=== PATIENT | male | born 1960 | race American Indian/Alaskan Native ===

== ENCOUNTER 2017-08-16 13:06 | Emergency (ER) | payer MEDICARE ==
[2017-08-16 13:17] LABS: POC GLUCOSE 281 mg/dL (70-99)
[2017-08-16 13:35] LABS: ADD MAN DIFF? NO
[2017-08-16 13:39] LABS: BASO % 1 % (0-3); EOS # 0.2 x10^3/uL (0.0-0.7); EOS % 2 % (0-3); HEMATOCRIT 37.5 % (39.0-53.0); HEMOGLOBIN 12.8 g/dL (13.0-17.5); LYMPH # 2.6 x10^3/uL (1.0-4.8); LYMPH % 29 % (24-48); MEAN CORPUSCULAR HEMOGLOBIN 29 pg (25-35); MEAN CORPUSCULAR HGB CONC 34 g/dL (31-37); MEAN CORPUSCULAR VOLUME 85 fL (79-100); MONO # 0.8 x10^3/uL (0.0-1.1); MONO % 9 % (0-9); NEUT # 5.4 x10^3uL (1.8-7.7); NEUT % 60 % (31-73); PLATELET COUNT 140 x10^3/uL (140-400); RED BLOOD COUNT 4.41 x10^6/uL (4.30-5.70)
[2017-08-16] MEDS: IV NORMAL SALINE 1000ML BAG 1,000 ML IV (13:42)
[2017-08-16 13:50] LABS: BILIRUBIN,URINE NEGATIVE (NEG); CLARITY,URINE CLOUDY; COLOR,URINE YELLOW; GLUCOSE,URINE >=1000 mg/dL (NEG); NITRITE,URINE NEGATIVE (NEG); PH,URINE 5.5; PROTEIN,URINE 100 mg/dL (NEG-TRACE); UROBILINOGEN,URINE 0.2 mg/dL (0.2 mg/dL)
[2017-08-16 13:51] LABS: ETHANOL < 10 mg/dL (0-10)
[2017-08-16 13:52] LABS: ANION GAP 10 (6-14); BLOOD UREA NITROGEN 26 mg/dL (8-26); BUN/CREATININE RATIO 22 (6-20); CALCIUM 8.8 mg/dL (8.5-10.1); CARBON DIOXIDE 27 mmol/L (21-32); CHLORIDE 100 mmol/L (98-107); CREATININE 1.2 mg/dL (0.7-1.3); GFR 63.1; GLUCOSE 275 mg/dL (70-99); POTASSIUM 4.3 mmol/L (3.5-5.1); SODIUM 137 mmol/L (136-145)
[2017-08-16 13:56] LABS: ALBUMIN 3.4 g/dL (3.4-5.0); ALBUMIN/GLOBULIN RATIO 0.9 (1.0-1.7); ALK PHOS 105 U/L (46-116); ALT (SGPT) 187 U/L (16-63); AMYLASE 50 U/L (25-115); AST (SGOT) 87 U/L (15-37); BARBITURATES NEG (NEG); BENZODIAZEPINES NEG (NEG); CANNABINOIDS POS (NEG); COCAINE NEG (NEG); LIPASE 110 U/L (73-393); METHADONE NEG (NEG); OPIATES NEG (NEG); PHENCYCLIDINE NEG (NEG); TOTAL BILIRUBIN 1.2 mg/dL (0.2-1.0); TOTAL PROTEIN 7.4 g/dL (6.4-8.2)
[2017-08-16 13:57] LABS: AMPHETAMINE/METHAMPHETAMINE POS (NEG); ETHANOL, URINE NEG (NEG)
[2017-08-16 13:59] LABS: TROPONINI < 0.017 ng/mL (0.000-0.055)
[2017-08-16 14:13] LABS: BACTERIA,URINE 0 /HPF (0-FEW)
[2017-08-16 14:14] LABS: HYALINE CASTS, URINE MODERATE /HPF
[2017-08-16 14:33] LABS: POC GLUCOSE 222 mg/dL (70-99)
[2017-08-16] MEDS ORDERED: INSULIN REGULAR 100 UNIT/ML 3ML VIAL. SQ (15:00)
== END 2017-08-16 15:14 | disposition home or self-care (01) ==
LOC: ER 13:06
DX: E11.65 Type 2 diabetes mellitus with hyperglycemia (principal); F19.10 Other psychoactive substance abuse, uncomplicated; F31.9 Bipolar disorder, unspecified; I10 Essential (primary) hypertension; F10.10 Alcohol abuse, uncomplicated
CPT/HCPCS: 36415; 80053; 80307; 81001; 82150; 82962; 83690; 84484; 85025; 93005; 96360; 99285-25; G0480; J7030

== ENCOUNTER 2018-03-23 07:11 | Emergency (ER) | payer MEDICARE ==
[~2018-03-23] VITALS: Ht 182.9 cm; Wt 88.5 kg
[~2018-03-23 07:11] MED LIST: CYCL10TA2 PO; LISI10TA2 PO; METF500T16 PO; NAPR250T6 PO; PERM60CR12 TP
[2018-03-23 07:17] VITALS: BP 167/108
[2018-03-23] MEDS ORDERED: IV NORMAL SALINE 1000ML BAG 1,000 ML IV ONE (07:45)
[2018-03-23] MEDS ORDERED: KETOROLAC 30 MG/ML VIAL. IV ONE (07:45)
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
--- NOTE | 2018-03-23 08:01 | RAD ---
Examination: 2 views of the right hip with frontal view of the pelvis HISTORY: History of right hip pain COMPARISON: 01/01/2016 FINDINGS: Right total hip arthroplasty changes in normal alignment. Old fractures of the right superior inferior pubic ramus identified. Moderate degenerative changes left hip joint. IMPRESSION: 1. Right total hip arthroplasty changes, unchanged alignment. Electronically signed by: Reji Sanchez MD (03/23/2018 7:58 AM) [facility]
[2018-03-23 08:03] LABS: BASO % 0 % (0-3); EOS # 0.1 x10^3/uL (0.0-0.7); EOS % 2 % (0-3); HEMATOCRIT 36.5 % (39.0-53.0); HEMOGLOBIN 12.1 g/dL (13.0-17.5); LYMPH # 1.1 x10^3/uL (1.0-4.8); LYMPH % 23 % (24-48); MEAN CORPUSCULAR HEMOGLOBIN 29 pg (25-35); MEAN CORPUSCULAR HGB CONC 33 g/dL (31-37); MEAN CORPUSCULAR VOLUME 87 fL (79-100); MONO # 0.3 x10^3/uL (0.0-1.1); MONO % 7 % (0-9); NEUT # 3.4 x10^3uL (1.8-7.7); NEUT % 69 % (31-73); PLATELET COUNT 96 x10^3/uL (140-400); RED BLOOD COUNT 4.19 x10^6/uL (4.30-5.70); RED CELL DISTRIBUTION WIDTH 15.6 % (11.5-14.5); WHITE BLOOD COUNT 4.9 x10^3/uL (4.0-11.0)
[2018-03-23 08:12] LABS: PROTHROMBIN TIME PATIENT 15.7 SEC (11.7-14.0)
[2018-03-23 08:14] LABS: CALCIUM 8.7 mg/dL (8.5-10.1); GFR 77.6; POTASSIUM 3.5 mmol/L (3.5-5.1)
[2018-03-23 08:18] LABS: ALBUMIN 3.6 g/dL (3.4-5.0); MAGNESIUM 1.8 mg/dL (1.8-2.4); TOTAL BILIRUBIN 1.2 mg/dL (0.2-1.0); TOTAL PROTEIN 7.3 g/dL (6.4-8.2)
[2018-03-23 08:19] LABS: ACETAMIN < 2.0 mcg/ml (10-30); SALIC < 2.8 mg/dL (2.8-20.0)
[2018-03-23 08:26] LABS: BILIRUBIN,URINE SMALL (NEG); CLARITY,URINE CLEAR; COLOR,URINE AMBER; NITRITE,URINE NEGATIVE (NEG); PH,URINE 5.5; PROTEIN,URINE 100 mg/dL (NEG-TRACE)
[2018-03-23 08:34] LABS: AMPHETAMINE/METHAMPHETAMINE POS (NEG); BACTERIA,URINE FEW /HPF (0-FEW); BARBITURATES NEG (NEG); BENZODIAZEPINES POS (NEG); CANNABINOIDS NEG (NEG); COCAINE NEG (NEG); METHADONE NEG (NEG); OPIATES NEG (NEG); PHENCYCLIDINE NEG (NEG); RBC,URINE OCC /HPF (0-2)
[2018-03-23 08:35] LABS: SQUAMOUS EPITHELIAL CELL,UR OCC /LPF
[2018-03-23] MEDS ORDERED: diazePAM 5 MG TABLET PO ONE (09:00)
[2018-03-23] MEDS ORDERED: PRENATAL MULTIVITAMIN TABLET. PO ONE (09:15)
[2018-03-23] MEDS ORDERED: oxyCODONE/APAP 5/325 1 TAB TABLET PO ONE (09:30)
[2018-03-23] MEDS ORDERED: fentaNYL PF VIAL 100 MCG/2 ML VIAL IV ONE (10:15)
--- NOTE | 2018-03-23 10:46 | RAD ---
Examination: Ultrasound testis HISTORY: History of testicular pain COMPARISON: None available. Findings: The right testis measures 4.1 x 3.7 x 2.7 cm. The left testis measures 4.1 x 3.4 x 2.5 cm. Blood flow identified in the right and left testis. Small bilateral hydroceles identified. Tortuous appearing vascularity identified in the left scrotal region likely a varicocele. IMPRESSION: 1. Small bilateral hydroceles. 2. Left-sided varicocele. Electronically signed by: Reji Sanchez MD (03/23/2018 10:43 AM) [facility]
[2018-03-23] MEDS ORDERED: ORPH100T PO (11:13)
--- NOTE | 2018-03-25 14:32 | EKG ---
[facility] [address] [place] [address] Test Date: 2018-03-23 Test Time: 07:55:41 Pat Name: KEITH NGUYEN Department: Room: Gender: Religion Instructor: : 1960 Requested By: SOY PEPPER Order Number: [id number] Reading MD: Rivas Kuhn Measurements Intervals [place] Rate: P: PA: QRS: QRSD: T: QT: QTc: Interpretive Statements Compared to ECG 08/16/2017 13:53:15 No significant changes Electronically Signed On 03-27-2018 8:48:03 [employer] by Rivas Kuhn
== END 2018-03-23 11:30 | disposition home or self-care (01) ==
LOC: ER 07:11
DX: G89.29 Other chronic pain (principal); M25.551 Pain in right hip; I86.1 Scrotal varices; N43.3 Hydrocele, unspecified; F43.10 Post-traumatic stress disorder, unspecified; F17.200 Nicotine dependence, unspecified, uncomplicated; F31.9 Bipolar disorder, unspecified; I10 Essential (primary) hypertension; E11.9 Type 2 diabetes mellitus without complications; F10.20 Alcohol dependence, uncomplicated; Y90.9 Presence of alcohol in blood, level not specified; Z96.641 Presence of right artificial hip joint; Z59.0 Homelessness
CPT/HCPCS: 36415; 73502; 76870; 80053; 80307; 80329; 81001; 82962; 83735; 85025; 85610; 85730; 93005; 96374; 96375; 99284; G0480; G6039; J1885; J3010; J7030

== ENCOUNTER 2018-06-23 22:20 | Emergency (ER) | payer MEDICARE ==
[~2018-06-23] VITALS: Ht 182.9 cm; Wt 88.5 kg
[~2018-06-23 22:20] MED LIST changes: +ORPH100T PO
[2018-06-23 23:00] VITALS: BP 179/105
[2018-06-23] MEDS ORDERED: KETOROLAC 30 MG/ML VIAL. IM ONE (23:30)
[2018-06-24] MEDS ORDERED: NAPR-695 PO (00:38)
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
--- NOTE | 2018-06-24 05:19 | RAD ---
Right knee 3 views. HISTORY: Pain and swelling 3 views were taken of the right knee. There are 2 screws in the tibia from an old surgery. There is osteoarthritis at the knee with hypertrophic spurring. There are holes in the femur on the lateral view suggesting previous screws have been removed. There is a joint effusion. IMPRESSION: 1. Changes suggesting old injury. 2. Moderate osteoarthritis right knee. 3. Joint effusion. Electronically signed by: Prosper Fitch MD (06/24/2018 5:16 AM) [facility]
== END 2018-06-24 00:57 | disposition home or self-care (01) ==
LOC: ER 22:20
DX: S80.01XA Contusion of right knee, initial encounter (principal); M17.11 Unilateral primary osteoarthritis, right knee; F31.9 Bipolar disorder, unspecified; E11.9 Type 2 diabetes mellitus without complications; I10 Essential (primary) hypertension; Z98.1 Arthrodesis status; Z98.890 Other specified postprocedural states; F10.20 Alcohol dependence, uncomplicated; Y90.9 Presence of alcohol in blood, level not specified; W22.8XXA Striking against or struck by other objects, initial encounter; Y93.89 Activity, other specified; Y92.89 Other specified places as the place of occurrence of the external cause; Y99.8 Other external cause status
CPT/HCPCS: 73562; 96372; 99284; J1885

== ENCOUNTER 2019-11-28 21:28 | Inpatient (IN) | payer MEDICARE, MEDICAID ==
[~2019-11-28] VITALS: Ht 182.9 cm; Wt 77.8 kg
[~2019-11-28 21:28] MED LIST changes: +AMLO-187 PO; +BUPR150T6 PO; +CEFAZOLIN IV; +GABA300C18 PO; +INSU100V35 SQ; +INSU100V8 SQ; +LIDO700A21 TD; +MERO1VIA24 IV; +NAPR-695 PO; +TAMS0.4C97 PO
[2019-11-28 22:25] LABS: BILIRUBIN,URINE NEGATIVE (NEG); CLARITY,URINE CLEAR; COLOR,URINE YELLOW; NITRITE,URINE NEGATIVE (NEG); PROTEIN,URINE NEGATIVE (NEG-TRACE); UROBILINOGEN,URINE 0.2 mg/dL (0.2 mg/dL)
[2019-11-28 22:30] LABS: BACTERIA,URINE 0 /HPF (0-FEW); RBC,URINE RARE /HPF (0-2)
[2019-11-28] MEDS ORDERED: IV NORMAL SALINE 1000ML BAG 1,000 ML IV SCH (22:30)
[2019-11-28 22:37] LABS: BASO % 1 % (0-3); EOS # 0.2 x10^3/uL (0.0-0.7); EOS % 2 % (0-3); HEMATOCRIT 25.5 % (39.0-53.0); HEMOGLOBIN 8.4 g/dL (13.0-17.5); LYMPH # 0.5 x10^3/uL (1.0-4.8); LYMPH % 5 % (24-48); MEAN CORPUSCULAR HEMOGLOBIN 27 pg (25-35); MEAN CORPUSCULAR HGB CONC 33 g/dL (31-37); MEAN CORPUSCULAR VOLUME 82 fL (79-100); MONO # 0.6 x10^3/uL (0.0-1.1); MONO % 6 % (0-9); NEUT % 87 % (31-73); PLATELET COUNT 118 x10^3/uL (140-400); RED BLOOD COUNT 3.13 x10^6/uL (4.30-5.70); RED CELL DISTRIBUTION WIDTH 17.8 % (11.5-14.5); WHITE BLOOD COUNT 10.3 x10^3/uL (4.0-11.0)
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
[2019-11-28 22:44] LABS: CALCIUM 8.5 mg/dL (8.5-10.1); CREATININE 2.2 mg/dL (0.7-1.3); POTASSIUM 4.5 mmol/L (3.5-5.1)
[2019-11-28 22:49] LABS: MAGNESIUM 2.1 mg/dL (1.8-2.4); PHOSPHORUS 3.5 mg/dL (2.6-4.7)
[2019-11-28 22:50] LABS: ALBUMIN 2.3 g/dL (3.4-5.0); ALBUMIN/GLOBULIN RATIO 0.4 (1.0-1.7); TOTAL BILIRUBIN 0.3 mg/dL (0.2-1.0); TOTAL PROTEIN 7.9 g/dL (6.4-8.2)
[2019-11-28 22:58] LABS: % BANDS 16 % (0-9); % EOS 3 % (0-5); % LYMPHS 2 % (24-48); % MONOS 8 % (0-10); % MYELOS 1 % (0-0); % SEGS 70 % (35-66); PLATELET CLUMP PRESENT
[2019-11-28 23:03] LABS: ANISOCYTOSIS SLIGHT; PLT ESTIMATE DECREASED (ADEQUATE)
--- NOTE | 2019-11-28 23:08 | RAD ---
AP chest. HISTORY: Fever AP view was taken of the chest. Right central line is in good position. There are old left rib fractures with previous surgery. There are no acute infiltrates. Heart is normal in size. There is no effusion. IMPRESSION: 1. No acute chest disease. Electronically signed by: Prosper Fitch MD (11/28/2019 11:06 PM) [id number]
[2019-11-29] MEDS ORDERED: ACETAMINOPHEN 500 MG TABLET PO ONE (00:30)
[2019-11-29] MEDS ORDERED: IV NORMAL SALINE 1000ML BAG 1,000 ML IV ONE (01:00)
[2019-11-29] MEDS ORDERED: ONDANSETRON PF 4 MG/2 ML VIAL. IV PRN (01:00)
[2019-11-29] MEDS ORDERED: fentaNYL PF VIAL 100 MCG/2 ML VIAL IV PRN (01:00)
[2019-11-29] MEDS ORDERED: ACETAMINOPHEN 325 MG TABLET. PO PRN (01:00)
[2019-11-29 08:00] VITALS: BP 142/95
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
[2019-11-29 11:00] VITALS: BP 141/88
[2019-11-29] MEDS: CLOTRIMAZOLE 1% TOPICAL CREAM 15GM TUBE. TP SCH ×2 (11:26→21:00)
[2019-11-29 15:00] VITALS: BP 141/88
--- NOTE | 2019-11-29 16:37 | NUR ---
Patient arrived to the unit around 0800 via gurney and assist x 1 to transfer to bed. Pt was oriented to room staff and unit as well as policies. pt states understanding. pts sister Radha called and was given updates as permission given by the patient. Patients pass code given to family per pts request. Pts daughters arrived on the unit at approx 1300 this shift and thought they were able to see the pt. Patient gave nurse permission to given daughters Sierra and Rut all info and passcode. Updates given and explained to the family as well as visiting policies. pt was swabbed by this nurse and swab taken to lab at approx 1400 as ER stated that the pt refused to allow them to swab him. Pt resting quietly at this time. Will continue to monitor.
[2019-11-29 20:00] VITALS: BP 128/71
[2019-11-29] MEDS: CEFEPIME HCL IV Push 1 GM VIAL. IVP SCH (21:54)
[2019-11-29 23:25] VITALS: BP 147/88
[2019-11-30 04:20] VITALS: BP 138/62
[2019-11-30 06:43] LABS: BASO % 0 % (0-3); EOS % 1 % (0-3); HEMATOCRIT 23.6 % (39.0-53.0); HEMOGLOBIN 7.8 g/dL (13.0-17.5); LYMPH # 0.6 x10^3/uL (1.0-4.8); LYMPH % 10 % (24-48); MEAN CORPUSCULAR HEMOGLOBIN 27 pg (25-35); MEAN CORPUSCULAR HGB CONC 33 g/dL (31-37); MEAN CORPUSCULAR VOLUME 82 fL (79-100); MONO # 0.5 x10^3/uL (0.0-1.1); MONO % 7 % (0-9); NEUT # 5.6 x10^3/uL (1.8-7.7); NEUT % 83 % (31-73); RED BLOOD COUNT 2.88 x10^6/uL (4.30-5.70); RED CELL DISTRIBUTION WIDTH 17.8 % (11.5-14.5); WHITE BLOOD COUNT 6.8 x10^3/uL (4.0-11.0)
[2019-11-30 06:55] LABS: CALCIUM 8.4 mg/dL (8.5-10.1); CREATININE 2.1 mg/dL (0.7-1.3); GFR 32.7; POTASSIUM 4.4 mmol/L (3.5-5.1)
[2019-11-30 07:14] VITALS: BP 136/73
[2019-11-30] MEDS: CLOTRIMAZOLE 1% TOPICAL CREAM 15GM TUBE. TP SCH ×2 (09:00→21:00)
[2019-11-30 11:06] VITALS: BP 146/81
[2019-11-30] MEDS: CIPROFLOXACIN 400MG PREMIX 200 ML IV SCH ×2 (12:04→21:23)
[2019-11-30] MEDS: CEFEPIME HCL IV Push 1 GM VIAL. IVP SCH ×2 (12:12→21:24)
[2019-11-30] MEDS: LACTOBACILLUS RHAMNOSUS GG 1 CAPSULE. PO SCH ×2 (12:14→21:25)
[2019-11-30 13:01] LABS: PLATELET COUNT 57 x10^3/uL (140-400)
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
[2019-11-30 15:10] VITALS: BP 146/87
[2019-11-30] MEDS: ACETAMINOPHEN 325 MG TABLET. PO PRN (15:56)
[2019-11-30] MEDS ORDERED: DEXTROSE 50% 25 GM / 50ML DISP.SYRIN. IV PRN (17:45)
[2019-11-30] MEDS: INSULIN LISPRO 300 UNITS/3 ML VIAL. SQ SCH ×2 (18:41→18:42)
[2019-11-30 19:53] VITALS: BP 113/72
[2019-11-30] MEDS: APIXABAN 5 MG TABLET. PO SCH (21:25)
[2019-11-30] MEDS: GABAPENTIN 300 MG CAPSULE. PO SCH (21:25)
[2019-11-30] MEDS: INSULIN GLARGINE SYRINGE. SQ SCH (21:26)
[2019-11-30 23:32] VITALS: BP 120/74
[2019-12-01 00:33] LABS: BARBITURATES NEG (NEG); BENZODIAZEPINES NEG (NEG); CANNABINOIDS NEG (NEG); COCAINE NEG (NEG); METHADONE NEG (NEG); OPIATES NEG (NEG); PHENCYCLIDINE NEG (NEG)
[2019-12-01 00:35] LABS: AMPHETAMINE/METHAMPHETAMINE NEG (NEG)
[2019-12-01 07:05] VITALS: BP 126/84
--- NOTE | 2019-12-01 07:34 | PDOC ---
Infectious Disease Note Subjective: Subjective Patient remains febrile Denies any other complaints except for difficulty passing urine Has to strain while passing urine Vital Signs: Vital Signs Vital Signs Date Time Temp Pulse Resp B/P (MAP) Pulse Ox O2 Delivery O2 Flow Rate FiO2 12/01/19 03:44 20 Nasal Cannula 2.0 11/30/19 23:32 97.8 87 120/74 (89) 98 97.8 Physical Exam: PHYSICAL EXAM GENERAL: axox3 male in nad nontoxic-appearing HEENT anicteric, no conjunctival petechia LUNGS: Clear to auscultation. Chest wall right chest powered picc present, clean HEART: S1, S2, no murmur. ABDOMEN: Soft. No guarding. Positive bowel sounds, no [place] EXTREMITIES: No clubbing or cyanosis. Edema to right forearm. SKIN: Warm without generalized rash. He has multiple tattoos. NEUROLOGIC: Nonfocal, moves all extremities. MSK no joint effusion or tenderness noted Back no spine tenderness Medications: Inpatient Meds: Current Medications Medications (Trade) Dose Ordered Sig/Nany Start Time Stop Time Status Last Admin Dose Admin Acetaminophen (Tylenol) 650 mg PRN Q6HRS PRN 11/30/19 13:45 11/30/19 15:56 650 MG Apixaban (Eliquis) 5 mg BID 11/30/19 21:00 11/30/19 21:25 5 MG Bupropion HCl (Wellbutrin Xl) 300 mg DAILY 12/01/19 09:00 Cefepime HCl (Maxipime) 1 gm Q12HR 11/29/19 18:00 11/30/19 21:24 1 GM Ciprofloxacin/ Dextrose 200 ml @ 200 mls/hr Q12HR 11/30/19 09:00 11/30/19 21:23 200 MLS/HR Clotrimazole (Lotrimin) 1 diana BID 11/29/19 09:00 11/30/19 21:00 1 DIANA Dextrose (Dextrose 50%-Water Syringe) 12.5 gm PRN Q15MIN PRN 11/30/19 17:45 Fentanyl Citrate (Fentanyl 2ml Vial) 50 mcg PRN Q1HR PRN 11/29/19 01:00 11/30/19 00:59 DC Gabapentin (Neurontin) 300 mg TID 11/30/19 21:00 10/25/20 21:25 300 MG Insulin Glargine (Lantus Syringe) 28 unit QHS 11/30/19 21:00 11/30/19 21:26 28 UNIT Insulin Human Lispro (HumaLOG) 4 units TIDWMEALS 11/30/19 18:15 11/30/19 18:42 4 UNITS Lactobacillus Rhamnosus (Culturelle) 1 cap BID 11/30/19 12:00 11/30/19 21:25 1 CAP Lorazepam (Ativan Inj) 0.5 mg 1X ONCE 11/28/19 23:00 11/28/19 23:01 DC 11/28/19 22:32 0.5 MG Metronidazole 100 ml @ 100 mls/hr Q12HR 11/29/19 19:00 11/30/19 21:24 100 MLS/HR Ondansetron HCl (Zofran) 4 mg PRN Q8HRS PRN 11/29/19 01:00 11/30/19 00:59 DC 11/30/19 00:02 4 MG Sodium Chloride 1,000 ml @ 75 mls/hr 1X ONCE 11/29/19 01:00 11/29/19 14:19 DC 11/29/19 00:28 75 MLS/HR Labs: Lab Laboratory Tests Test 11/30/19 07:53 11/30/19 11:42 11/30/19 17:34 11/30/19 20:48 Glucose (Fingerstick) 276 mg/dL (70-99) 273 mg/dL (70-99) 557 mg/dL (70-99) 359 mg/dL (70-99) Test 11/30/19 23:00 Urine Opiates Screen Neg (NEG) Urine Methadone Screen Neg (NEG) Urine Barbiturates Neg (NEG) Urine Phencyclidine Screen Neg (NEG) Urine Amphetamine/Methamphetamine Neg (NEG) Urine Benzodiazepines Screen Neg (NEG) Urine Cocaine Screen Neg (NEG) Urine Cannabinoids Screen Neg (NEG) Urine Ethyl Alcohol Neg (NEG) Objective: Assessment: Serratia bacteremia present on admission source unclear what could be possible drug use Fever Thrombocytopenia History of Enterobacter, methicillin sensitive staph aureus sepsis November 03, source possible drug use GERI with CKD Amphetamine/methamphetamine use Diabetes mellitus poorly controlled Bilateral hydronephrosis Cirrhosis History of homelessness Chronic pain syndrome Protein calorie malnutrition Plan: Plan of Care Start meropenem, may need renal dosing Continue Cipro pending susceptibilities of Serratia DC cefepime, Flagyl, CT abdomen and pelvis without Patient may need urology evaluation Repeat blood cultures in a.m. Patient may need central line removal DUNIA RODRÍGUEZ MD Dec 01, 2019 07:34
[2019-12-01] MEDS ORDERED: INSULIN LISPRO 300 UNITS/3 ML VIAL. SQ SCH ×2 (08:00)
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
--- NOTE | 2019-12-01 09:28 | CONS ---
DATE OF CONSULTATION: 11/30/2019 REQUESTING PHYSICIAN: . REASON FOR CONSULTATION: . HISTORY OF PRESENT ILLNESS: This is a 59-year-old gentleman who was recently discharged from the hospital on 11/21/2019. The patient was in the hospital for a long time with having Enterobacter and Staph aureus bacteremia. The patient had finished the Enterobacter treatment while in the hospital ended up in the hospital for 2 weeks and then he was getting cefazolin at nursing facility where he started having fever and chills, hence he was sent back. The patient is currently chilling. The patient has Gram-negative stephani in the blood and he is having body aches and fever. The patient denies any nausea, vomiting, diarrhea. Denies any use of drugs as he had used drugs last admission before coming in. Denies any headache, visual symptoms, chest pain, abdominal pain, urinary symptoms or bowel symptoms. PAST MEDICAL HISTORY: Positive for diabetes, drug use, hypertension, hep C, bipolar disorder and recent Enterobacter and Staph aureus bacteremia. SOCIAL HISTORY: Negative for smoking or alcohol use. The patient does do drugs. CURRENT MEDICATIONS: The patient was on cefazolin before coming in. REVIEW OF SYSTEMS: As per HPI, all other systems reviewed are negative. CURRENT MEDICATIONS: Right now, he is on cefepime and Flagyl. PHYSICAL EXAMINATION: GENERAL: Awake gentleman. He is having chills. VITAL SIGNS: T-max is 100.6, pulse 114, respirations 20, blood pressure 167/97. HEENT: Both pupils are round and reacting. No conjunctival lesion, no lesion in the mouth. NECK: Supple, no JVP, no lymphadenopathy. LUNGS: Clear. HEART: S1, S2 regular. ABDOMEN: Soft, nontender, no organomegaly. EXTREMITIES: No edema, cyanosis. SKIN: Unremarkable. Port site in the right upper chest is unremarkable. NEUROLOGIC: The patient is alert, awake and appropriate. No focal neurologic deficit. LABORATORY DATA: White count is 10.3, platelets 118,000. BUN and creatinine is 31 and 2.2. Lactic acid 1.7. Urinalysis was unremarkable. His blood culture is showing 1/4 Gram-negative stephani. IMPRESSION: 1. Gram-negative stephani sepsis. 2. Fever and chills. 3. Recent methicillin-susceptible Staphylococcus aureus and Enterobacter bacteremia. 4. History of drug use. RECOMMENDATIONS: Continue cefepime. We will discontinue Flagyl, add ciprofloxacin until the identification and susceptibilities are known. Supportive care and we will continue to follow. Also, I am going to go ahead and do the CT chest, abdomen, pelvis and the drug screen. Thank you very much, Dr. Willis, for giving me the opportunity to participate in this patient's care. EUN RODRÍGUEZ MD DR: ERIK/nts JOB#: [id number] / [id number]
[2019-12-01] MEDS: MEROPENEM 500 MG in IV NORMAL SALINE 50ML 50 ML IV SCH ×3 (09:51→23:23)
[2019-12-01] MEDS: CIPROFLOXACIN 400MG PREMIX 200 ML IV SCH ×2 (09:51→22:41)
[2019-12-01] MEDS: APIXABAN 5 MG TABLET. PO SCH ×2 (09:52→22:41)
[2019-12-01] MEDS: LACTOBACILLUS RHAMNOSUS GG 1 CAPSULE. PO SCH ×2 (09:52→22:40)
[2019-12-01] MEDS: GABAPENTIN 300 MG CAPSULE. PO SCH ×3 (09:52→22:40)
[2019-12-01] MEDS: buPROPion XL 150 MG TAB.ER.24H. PO SCH (09:52)
[2019-12-01] MEDS: INSULIN LISPRO 300 UNITS/3 ML VIAL. SQ SCH ×6 (10:04→18:07)
[2019-12-01] MEDS: CLOTRIMAZOLE 1% TOPICAL CREAM 15GM TUBE. TP SCH ×2 (10:05→21:00)
[2019-12-01] MEDS ORDERED: ANTI-COAG MONITOR BY PHARMACY. MC PRN (10:45)
[2019-12-01 11:05] VITALS: BP 179/106
--- NOTE | 2019-12-01 11:38 | RAD ---
EXAM: CT Abdomen and Pelvis without IV contrast INDICATION: Reason: bacteremia ,obstruction / Spl. Instructions: / History: TECHNIQUE: Multi-detector row CT images were acquired from the lung bases through the abdomen and pelvis without the use of IV contrast. Sagittal and coronal images were acquired from the transaxial data. All CT scans performed at this facility utilize dose optimization techniques as appropriate to the exam, including the following: Automated exposure control and adjustment of the mA and/or KV according to patient size (this includes techniques or standardized protocols for targeted exams where dose is indication/reason for exam). ORAL CONTRAST: None COMPARISON: 11/05/2019 FINDINGS: The absence of IV contrast limits evaluation of soft tissue pathology. LOWER CHEST: Resolution in left pleural effusion. Small residual right pleural effusion and associated mild bibasilar atelectasis. Plate fixation of posterior left rib fractures (the seventh and ninth ribs). LIVER: Nodular contour consistent with cirrhosis. BILIARY SYSTEM: Contracted gallbladder with a calcified stone in the neck. Bile ducts are not dilated. PANCREAS: Unremarkable SPLEEN: Enlarged, measuring 15 x 12 x 18 cm ADRENALS: Unremarkable KIDNEYS & URETERS: Grade 2 bilateral hydronephrosis is present along with bilateral hydroureter. No radiopaque stones identified. BLADDER: Distended urinary bladder with multiple diverticula. The bladder measures 15.4 cm tall by 10.2 cm anteroposterior and 10.6 cm wide. REPRODUCTIVE ORGANS: Prostate measures 4.6 cm in diameter. GASTROINTESTINAL: The stomach, small bowel, and colon are notable for moderate stool throughout the large bowel but otherwise are unremarkable.. The appendix is normal. MESENTERY/PERITONEUM/RETROPERITONEUM: Unremarkable VASCULAR: IVC filter remains in place. LYMPH NODES: No adenopathy OSSEOUS & SOFT TISSUES: Old fracture of the right inferior pubic ramus with residual deformity. Right total hip arthroplasty. IMPRESSION: 1. There are CT findings suspicious for urinary tract obstruction. Can't exclude concurrent cystitis. Correlate clinically. 2. Cirrhosis with splenomegaly 3. Posttraumatic surgical changes left ribs as described, in addition to previous right hip arthroplasty and IVC filter placement. Electronically signed by: Pantera Arrieta MD (12/01/2019 11:36 AM) [id number]
[2019-12-01] MEDS: ACETAMINOPHEN 325 MG TABLET. PO PRN (12:31)
[2019-12-01 15:05] VITALS: BP 121/69
[2019-12-01 19:00] VITALS: BP 134/85
[2019-12-01] MEDS: INSULIN GLARGINE SYRINGE. SQ SCH (22:40)
[2019-12-01 23:00] VITALS: BP 134/87
[2019-12-02] VITALS (7 sets, daily range): BP systolic 124–158; BP diastolic 86–99
[2019-12-02] MEDS: MEROPENEM 500 MG in IV NORMAL SALINE 50ML 50 ML IV SCH ×3 (05:47→18:35)
--- NOTE | 2019-12-02 06:52 | PDOC ---
Infectious Disease Note Subjective: Subjective Patient feels better Fever pattern improving Able to pass urine though continues to strain Denies fever, chills, nausea, vomiting, diarrhea, abdominal pain Vital Signs: Vital Signs Vital Signs Date Time Temp Pulse Resp B/P (MAP) Pulse Ox O2 Delivery O2 Flow Rate FiO2 12/02/19 03:00 98.7 98 18 157/90 (112) 98 Room Air 2.0 98.7 Physical Exam: PHYSICAL EXAM GENERAL: axox3 male in nad nontoxic-appearing HEENT anicteric, no conjunctival petechia LUNGS: Clear to auscultation. Chest wall right chest powered picc present, clean HEART: S1, S2, no murmur. ABDOMEN: Soft. No guarding. Positive bowel sounds, no [place] EXTREMITIES: No clubbing or cyanosis. Edema to right forearm. SKIN: Warm without generalized rash. He has multiple tattoos. NEUROLOGIC: Nonfocal, moves all extremities. MSK no joint effusion or tenderness noted Back no spine tenderness Medications: Inpatient Meds: Current Medications Medications (Trade) Dose Ordered Sig/Nany Start Time Stop Time Status Last Admin Dose Admin Acetaminophen (Tylenol) 650 mg PRN Q6HRS PRN 11/30/19 13:45 12/01/19 12:31 650 MG Apixaban (Eliquis) 5 mg BID 11/30/19 21:00 12/01/19 22:41 5 MG Bupropion HCl (Wellbutrin Xl) 300 mg DAILY 12/01/19 09:00 12/01/19 09:52 300 MG Cefepime HCl (Maxipime) 1 gm Q12HR 11/29/19 18:00 12/01/19 07:28 DC 11/30/19 21:24 1 GM Ciprofloxacin/ Dextrose 200 ml @ 200 mls/hr Q12HR 12/01/19 09:00 12/01/19 22:41 200 MLS/HR Clotrimazole (Lotrimin) 1 diana BID 11/29/19 09:00 12/01/19 10:05 1 DIANA Dextrose (Dextrose 50%-Water Syringe) 12.5 gm PRN Q15MIN PRN 11/30/19 17:45 Fentanyl Citrate (Fentanyl 2ml Vial) 50 mcg PRN Q1HR PRN 11/29/19 01:00 11/30/19 00:59 DC Gabapentin (Neurontin) 300 mg TID 11/30/19 21:00 12/01/19 22:40 300 MG Info (Anti-Coagulation Monitoring By Pharmacy) 1 each PRN DAILY PRN 12/01/19 10:45 Insulin Glargine (Lantus Syringe) 28 unit QHS 11/30/19 21:00 12/01/19 22:40 28 UNIT Insulin Human Lispro (HumaLOG) 4 units TIDWMEALS 11/30/19 18:15 12/01/19 18:06 4 UNITS Lactobacillus Rhamnosus (Culturelle) 1 cap BID 11/30/19 12:00 12/01/19 22:40 1 CAP Lorazepam (Ativan Inj) 0.5 mg 1X ONCE 11/28/19 23:00 11/28/19 23:01 DC 11/28/19 22:32 0.5 MG Meropenem 500 mg/ Sodium Chloride 50 ml @ 100 mls/hr Q6HRS 12/01/19 08:30 12/02/19 05:47 100 MLS/HR Metronidazole 100 ml @ 100 mls/hr Q12HR 11/29/19 19:00 12/01/19 07:27 DC 11/30/19 21:24 100 MLS/HR Ondansetron HCl (Zofran) 4 mg PRN Q8HRS PRN 11/29/19 01:00 11/30/19 00:59 DC 11/30/19 00:02 4 MG Sodium Chloride 1,000 ml @ 75 mls/hr 1X ONCE 11/29/19 01:00 11/29/19 14:19 DC 11/29/19 00:28 75 MLS/HR Labs: Lab Laboratory Tests Test 12/01/19 08:04 12/01/19 11:54 12/01/19 16:03 12/01/19 20:25 Glucose (Fingerstick) 225 mg/dL (70-99) 228 mg/dL (70-99) 177 mg/dL (70-99) 380 mg/dL (70-99) Micro RUN DATE: 12/01/19 [facility] *LIVE* PAGE 1 RUN TIME: 1008 Specimen Inquiry PATIENT: KEITH NGUYEN Chadwick ACCT: [id number] LOC: [address] [place] [address] U: [id number] AGE/SX: 59/M ROOM: [facility] RE11/29/[address]: WINTER TRISTAN MD : 1960 BED: 1 DIS: STATUS: ADM IN TLOC: SPEC #: [id number] ANALY: 11/28/19 STATUS: COMP REQ #: [id number] RECD: 11/28/[address]: GHAZALA ALLEN MD SOURCE: BLOOD ENTR: 11/29/19-[address]: UNKNOWN PCP NAME SPDESC: ORDERED: BLD CULT - LC Procedure Result BLOOD CULTURE LC Final Final FINAL ID= [SERRATIA MARCESCENS] SERRATIA MARCESCENS ANTIMICROBIAL SUSCEPTIBILITY Final Comment NEG FRANC 58 SERRATIA MARCESCENS ANTIBIOTIC RESULT INTERPRETATION AMPICILLIN/SULBACTAM 16/8 R* AMIKACIN <=16 S AMPICILLIN >16 R AMOXICILLIN/K CLAVULANATE >16/8 R AZTREONAM >16 R CEFTRIAXONE 8 R CEFTAZIDIME >16 R CEFOTAXIME >32 R CEFOXITIN 16 R* CIPROFLOXACIN <=0.25 S CEFEPIME 4 S CEFUROXIME >16 R CEFTAZIDIME/AVIBACTAM 8 S ERTAPENEM <=0.5 S GENTAMICIN <=2 S LEVOFLOXACIN <=0.5 S MEROPENEM <=1 S PIPERACILLIN/TAZOBACTAM >64 R TRIMETHOPRIM/SULFAMETHOXAZOLE <=0.5/9.5 S TETRACYCLINE 8 I TOBRAMYCIN <=2 S Unless otherwise specified, Testing Performed by: [address] [address] For Inquires, the Physician may contact the Microbiology department at [phone] Objective: Assessment: Serratia bacteremia present on admission source unclear what could be possible drug use Fever improved Thrombocytopenia likely from sepsis History of Enterobacter, methicillin sensitive staph aureus sepsis November 03, source possible drug use GERI with CKD Amphetamine/methamphetamine use Diabetes mellitus poorly controlled Bilateral hydronephrosis Cirrhosis History of homelessness Chronic pain syndrome Protein calorie malnutrition Plan: Plan of Care cont meropenem, may need renal dosing DC Cipro CT abdomen and pelvis without Patient may need urology evaluation Repeat blood cultures in a.m. Patient may need central line removal DUNIA RODRÍGUEZ MD Dec 02, 2019 06:52
[2019-12-02] MEDS: APIXABAN 5 MG TABLET. PO SCH ×2 (09:11→21:03)
[2019-12-02] MEDS: LACTOBACILLUS RHAMNOSUS GG 1 CAPSULE. PO SCH ×2 (09:11→21:03)
[2019-12-02] MEDS: buPROPion XL 150 MG TAB.ER.24H. PO SCH (09:11)
[2019-12-02] MEDS: CLOTRIMAZOLE 1% TOPICAL CREAM 15GM TUBE. TP SCH ×2 (09:11→21:07)
[2019-12-02] MEDS: GABAPENTIN 300 MG CAPSULE. PO SCH ×3 (09:11→21:03)
[2019-12-02] MEDS: INSULIN LISPRO 300 UNITS/3 ML VIAL. SQ SCH ×6 (09:21→17:33)
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
[2019-12-02] MEDS: ACETAMINOPHEN 325 MG TABLET. PO PRN (19:35)
[2019-12-02] MEDS: INSULIN GLARGINE SYRINGE. SQ SCH (21:14)
[2019-12-03] VITALS (7 sets, daily range): BP systolic 131–171; BP diastolic 78–113
[2019-12-03] MEDS: MEROPENEM 500 MG in IV NORMAL SALINE 50ML 50 ML IV SCH ×4 (00:02→17:59)
[2019-12-03 03:29] LABS: BASO % 1 % (0-3); EOS # 0.1 x10^3/uL (0.0-0.7); EOS % 2 % (0-3); HEMATOCRIT 24.9 % (39.0-53.0); HEMOGLOBIN 8.3 g/dL (13.0-17.5); LYMPH % 22 % (24-48); MEAN CORPUSCULAR HEMOGLOBIN 27 pg (25-35); MEAN CORPUSCULAR HGB CONC 33 g/dL (31-37); MEAN CORPUSCULAR VOLUME 81 fL (79-100); MONO # 0.5 x10^3/uL (0.0-1.1); MONO % 10 % (0-9); NEUT # 2.9 x10^3/uL (1.8-7.7); NEUT % 65 % (31-73); RED BLOOD COUNT 3.07 x10^6/uL (4.30-5.70); RED CELL DISTRIBUTION WIDTH 17.7 % (11.5-14.5); WHITE BLOOD COUNT 4.5 x10^3/uL (4.0-11.0)
[2019-12-03 03:35] LABS: PLATELET COUNT 128 x10^3/uL (140-400)
[2019-12-03 03:46] LABS: ALBUMIN 2.2 g/dL (3.4-5.0); ALBUMIN/GLOBULIN RATIO 0.5 (1.0-1.7); CALCIUM 8.1 mg/dL (8.5-10.1); CREATININE 1.9 mg/dL (0.7-1.3); GFR 36.7; POTASSIUM 4.6 mmol/L (3.5-5.1); TOTAL BILIRUBIN 0.2 mg/dL (0.2-1.0)
--- NOTE | 2019-12-03 04:27 | NUR ---
Call placed to re: pt elevated bp 165/113
[2019-12-03] MEDS: buPROPion XL 150 MG TAB.ER.24H. PO SCH (08:46)
[2019-12-03] MEDS: GABAPENTIN 300 MG CAPSULE. PO SCH ×3 (08:46→20:51)
[2019-12-03] MEDS: APIXABAN 5 MG TABLET. PO SCH ×2 (08:46→20:51)
[2019-12-03] MEDS: LACTOBACILLUS RHAMNOSUS GG 1 CAPSULE. PO SCH ×2 (08:46→20:51)
[2019-12-03] MEDS: amLODIPine BESYLATE 10 MG TABLET PO SCH (08:47)
[2019-12-03] MEDS: LISINOPRIL 10 MG TABLET PO SCH (08:48)
[2019-12-03] MEDS: INSULIN LISPRO 300 UNITS/3 ML VIAL. SQ SCH ×6 (08:49→18:03)
[2019-12-03] MEDS: CLOTRIMAZOLE 1% TOPICAL CREAM 15GM TUBE. TP SCH ×2 (08:52→20:56)
--- NOTE | 2019-12-03 09:56 | PDOC ---
Infectious Disease Note Subjective: Subjective Patient feels better Fever resolved Denies fever, chills, nausea, vomiting, diarrhea, abdominal pain Vital Signs: Vital Signs Vital Signs Date Time Temp Pulse Resp B/P (MAP) Pulse Ox O2 Delivery O2 Flow Rate FiO2 12/03/19 08:48 97 161/99 12/03/19 07:00 98.0 21 98 Room Air 98.0 12/02/19 08:15 2.0 Physical Exam: PHYSICAL EXAM GENERAL: axox3 male in nad nontoxic-appearing HEENT anicteric, no conjunctival petechia LUNGS: Clear to auscultation. Chest wall right chest powered picc present, clean HEART: S1, S2, no murmur. ABDOMEN: Soft. No guarding. Positive bowel sounds, no [place] EXTREMITIES: No clubbing or cyanosis. Edema to right forearm. SKIN: Warm without generalized rash. He has multiple tattoos. NEUROLOGIC: Nonfocal, moves all extremities. MSK no joint effusion or tenderness noted Back no spine tenderness Medications: Inpatient Meds: Current Medications Medications (Trade) Dose Ordered Sig/Nany Start Time Stop Time Status Last Admin Dose Admin Acetaminophen (Tylenol) 650 mg PRN Q6HRS PRN 11/30/19 13:45 12/02/19 19:35 650 MG Amlodipine Besylate (Norvasc) 10 mg DAILY 12/03/19 09:00 12/03/19 08:47 10 MG Apixaban (Eliquis) 5 mg BID 11/30/19 21:00 12/03/19 08:46 5 MG Bupropion HCl (Wellbutrin Xl) 300 mg DAILY 12/01/19 09:00 12/03/19 08:46 300 MG Cefepime HCl (Maxipime) 1 gm Q12HR 11/29/19 18:00 12/01/19 07:28 DC 11/30/19 21:24 1 GM Ciprofloxacin/ Dextrose 200 ml @ 200 mls/hr Q12HR 12/01/19 09:00 12/02/19 06:53 DC 12/01/19 22:41 200 MLS/HR Clotrimazole (Lotrimin) 1 diana BID 11/29/19 09:00 12/03/19 08:52 1 DIANA Dextrose (Dextrose 50%-Water Syringe) 12.5 gm PRN Q15MIN PRN 11/30/19 17:45 Fentanyl Citrate (Fentanyl 2ml Vial) 50 mcg PRN Q1HR PRN 11/29/19 01:00 11/30/19 00:59 DC Gabapentin (Neurontin) 300 mg TID 11/30/19 21:00 12/03/19 08:46 300 MG Info (Anti-Coagulation Monitoring By Pharmacy) 1 each PRN DAILY PRN 12/01/19 10:45 12/02/19 15:04 1 EACH Insulin Glargine (Lantus Syringe) 28 unit QHS 11/30/19 21:00 12/02/19 21:14 28 UNIT Insulin Human Lispro (HumaLOG) 4 units TIDWMEALS 11/30/19 18:15 12/03/19 08:49 4 UNITS Lactobacillus Rhamnosus (Culturelle) 1 cap BID 11/30/19 12:00 12/03/19 08:46 1 CAP Lisinopril (Prinivil) 10 mg DAILY 12/03/19 09:00 12/03/19 08:48 10 MG Lorazepam (Ativan Inj) 0.5 mg 1X ONCE 11/28/19 23:00 11/28/19 23:01 DC 11/28/19 22:32 0.5 MG Meropenem 500 mg/ Sodium Chloride 50 ml @ 100 mls/hr Q6HRS 12/01/19 08:30 12/03/19 05:30 100 MLS/HR Metronidazole 100 ml @ 100 mls/hr Q12HR 11/29/19 19:00 12/01/19 07:27 DC 11/30/19 21:24 100 MLS/HR Ondansetron HCl (Zofran) 4 mg PRN Q8HRS PRN 11/29/19 01:00 11/30/19 00:59 DC 11/30/19 00:02 4 MG Sodium Chloride 1,000 ml @ 75 mls/hr 1X ONCE 11/29/19 01:00 11/29/19 14:19 DC 11/29/19 00:28 75 MLS/HR Labs: Lab Laboratory Tests Test 12/02/19 10:59 12/02/19 16:13 12/02/19 21:05 12/03/19 03:13 Glucose (Fingerstick) 286 mg/dL (70-99) 166 mg/dL (70-99) 212 mg/dL (70-99) White Blood Count 4.5 x10^3/uL (4.0-11.0) Red Blood Count 3.07 x10^6/uL (4.30-5.70) Hemoglobin 8.3 g/dL (13.0-17.5) Hematocrit 24.9 % (39.0-53.0) Mean Corpuscular Volume 81 fL (79-100) Mean Corpuscular Hemoglobin 27 pg (25-35) Mean Corpuscular Hemoglobin Concent 33 g/dL (31-37) Red Cell Distribution Width 17.7 % (11.5-14.5) Platelet Count 128 x10^3/uL (140-400) Neutrophils (%) (Auto) 65 % (31-73) Lymphocytes (%) (Auto) 22 % (24-48) Monocytes (%) (Auto) 10 % (0-9) Eosinophils (%) (Auto) 2 % (0-3) Basophils (%) (Auto) 1 % (0-3) Neutrophils # (Auto) 2.9 x10^3/uL (1.8-7.7) Lymphocytes # (Auto) 1.0 x10^3/uL (1.0-4.8) Monocytes # (Auto) 0.5 x10^3/uL (0.0-1.1) Eosinophils # (Auto) 0.1 x10^3/uL (0.0-0.7) Basophils # (Auto) 0.0 x10^3/uL (0.0-0.2) Sodium Level 139 mmol/L (136-145) Potassium Level 4.6 mmol/L (3.5-5.1) Chloride Level 106 mmol/L (98-107) Carbon Dioxide Level 23 mmol/L (21-32) Anion Gap 10 (6-14) Blood Urea Nitrogen 40 mg/dL (8-26) Creatinine 1.9 mg/dL (0.7-1.3) Estimated GFR (Cockcroft-Gault) 36.7 BUN/Creatinine Ratio 21 (6-20) Glucose Level 232 mg/dL (70-99) Calcium Level 8.1 mg/dL (8.5-10.1) Total Bilirubin 0.2 mg/dL (0.2-1.0) Aspartate Amino Transf (AST/SGOT) 32 U/L (15-37) Alanine Aminotransferase (ALT/SGPT) 29 U/L (16-63) Alkaline Phosphatase 161 U/L (46-116) Total Protein 7.0 g/dL (6.4-8.2) Albumin 2.2 g/dL (3.4-5.0) Albumin/Globulin Ratio 0.5 (1.0-1.7) Test 12/03/19 07:20 Glucose (Fingerstick) 206 mg/dL (70-99) Micro ----- ------- RUN DATE: 12/01/19 [facility] LAB *LIVE* PAGE 1 RUN TIME: 1008 Specimen Inquiry PATIENT: WENDYKEITH ACCT: [id number] LOC: [address] [place] [address] U: [id number] AGE/SX: 59/M ROOM: 672 RE11/29/[address]: WINTER TRISTAN MD : 1960 BED: 1 DIS: STATUS: ADM IN TLOC: SPEC #: [id number] ANALY: 11/28/19 STATUS: COMP REQ #: [id number] RECD: 11/28/[address] [facility] [address]: GHAZALA ALLEN MD SOURCE: BLOOD ENTR: 11/29/19-1249 [facility] DR: UNKNOWN PCP NAME [facility]: ORDERED: BLD CULT - LC Procedure Result BLOOD CULTURE LC Final Final FINAL ID= [SERRATIA MARCESCENS] SERRATIA MARCESCENS ANTIMICROBIAL SUSCEPTIBILITY Final Comment NEG FRANC 56 SERRATIA MARCESCENS ANTIBIOTIC RESULT INTERPRETATION AMPICILLIN/SULBACTAM 16/8 R* AMIKACIN <=16 S AMPICILLIN >16 R AMOXICILLIN/K CLAVULANATE >16/8 R AZTREONAM >16 R CEFTRIAXONE 8 R CEFTAZIDIME >16 R CEFOTAXIME >32 R CEFOXITIN 16 R* CIPROFLOXACIN <=0.25 S CEFEPIME 4 S CEFUROXIME >16 R CEFTAZIDIME/AVIBACTAM 8 S ERTAPENEM <=0.5 S GENTAMICIN <=2 S LEVOFLOXACIN <=0.5 S MEROPENEM <=1 S PIPERACILLIN/TAZOBACTAM >64 R TRIMETHOPRIM/SULFAMETHOXAZOLE <=0.5/9.5 S TETRACYCLINE 8 I TOBRAMYCIN <=2 S Unless otherwise specified, Testing Performed by: [address] [address] For Inquires, the Physician may contact the Microbiology department at [phone] Objective: Assessment: Serratia bacteremia present on admission source unclear what could be possible drug use Fever improved Thrombocytopenia likely from sepsis History of Enterobacter, methicillin sensitive staph aureus sepsis November 03, source possible drug use Repeat blood cultures negative from November 07, 2019 GERI with CKD Amphetamine/methamphetamine use Diabetes mellitus poorly controlled Bilateral hydronephrosis Cirrhosis History of homelessness Chronic pain syndrome Protein calorie malnutrition Plan: Plan of Care Continue meropenem Linezolid f/u repeat bc Hopefully will be ready for discharge tomorrow DUNIA RODRÍGUEZ MD Dec 03, 2019 09:56
--- NOTE | 2019-12-03 10:27 | NUR ---
IP: Pt is mrsa + in urine requiring contact precautions.
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
[2019-12-03] MEDS: LINEZOLID 600 MG TABLET PO SCH ×2 (12:26→20:51)
[2019-12-03] MEDS: INSULIN GLARGINE SYRINGE. SQ SCH (20:54)
[2019-12-04] MEDS: MEROPENEM 500 MG in IV NORMAL SALINE 50ML 50 ML IV SCH ×2 (00:09→05:20)
[2019-12-04 03:04] VITALS: BP 137/88
[2019-12-04 05:40] LABS: CALCIUM 8.1 mg/dL (8.5-10.1); CREATININE 1.9 mg/dL (0.7-1.3); GFR 36.7; POTASSIUM 4.7 mmol/L (3.5-5.1)
[2019-12-04 06:42] LABS: BASO # 0.1 x10^3/uL (0.0-0.2); BASO % 1 % (0-3); EOS # 0.1 x10^3/uL (0.0-0.7); EOS % 2 % (0-3); LYMPH # 1.1 x10^3/uL (1.0-4.8); LYMPH % 19 % (24-48); MEAN CORPUSCULAR HEMOGLOBIN 27 pg (25-35); MEAN CORPUSCULAR HGB CONC 33 g/dL (31-37); MEAN CORPUSCULAR VOLUME 81 fL (79-100); MONO # 0.4 x10^3/uL (0.0-1.1); MONO % 6 % (0-9); NEUT # 4.4 x10^3/uL (1.8-7.7); NEUT % 72 % (31-73); PLATELET COUNT 106 x10^3/uL (140-400); RED BLOOD COUNT 2.99 x10^6/uL (4.30-5.70); RED CELL DISTRIBUTION WIDTH 17.5 % (11.5-14.5); WHITE BLOOD COUNT 6.1 x10^3/uL (4.0-11.0)
[2019-12-04 06:51] LABS: HEMATOCRIT 24.4 % (39.0-53.0); HEMOGLOBIN 8.2 g/dL (13.0-17.5)
[2019-12-04 07:00] VITALS: BP 152/91
--- NOTE | 2019-12-04 07:18 | PDOC ---
Infectious Disease Note Subjective: Subjective Patient feels better Fever resolved Denies fever, chills, nausea, vomiting, diarrhea, abdominal pain eager for dc home Vital Signs: Vital Signs Vital Signs Date Time Temp Pulse Resp B/P (MAP) Pulse Ox O2 Delivery O2 Flow Rate FiO2 12/04/19 03:04 98.0 95 19 137/88 (104) 99 Room Air 98.0 12/03/19 20:00 2.0 Physical Exam: PHYSICAL EXAM GENERAL: axox3 male in nad nontoxic-appearing looks better HEENT anicteric, no conjunctival petechia LUNGS: Clear to auscultation. Chest wall right chest powered picc present, clean HEART: S1, S2, no murmur. ABDOMEN: Soft. No guarding. Positive bowel sounds, no [place] EXTREMITIES: No clubbing or cyanosis. Edema to right forearm. SKIN: Warm without generalized rash. He has multiple tattoos. NEUROLOGIC: Nonfocal, moves all extremities. MSK no joint effusion or tenderness noted Back no spine tenderness Medications: Inpatient Meds: Current Medications Medications (Trade) Dose Ordered Sig/Nany Start Time Stop Time Status Last Admin Dose Admin Acetaminophen (Tylenol) 650 mg PRN Q6HRS PRN 11/30/19 13:45 12/02/19 19:35 650 MG Amlodipine Besylate (Norvasc) 10 mg DAILY 12/03/19 09:00 12/03/19 08:47 10 MG Apixaban (Eliquis) 5 mg BID 11/30/19 21:00 12/03/19 20:51 5 MG Bupropion HCl (Wellbutrin Xl) 300 mg DAILY 12/01/19 09:00 12/03/19 08:46 300 MG Cefepime HCl (Maxipime) 1 gm Q12HR 11/29/19 18:00 12/01/19 07:28 DC 11/30/19 21:24 1 GM Ciprofloxacin/ Dextrose 200 ml @ 200 mls/hr Q12HR 12/01/19 09:00 12/02/19 06:53 DC 12/01/19 22:41 200 MLS/HR Clotrimazole (Lotrimin) 1 diana BID 11/29/19 09:00 12/03/19 20:56 1 DIANA Dextrose (Dextrose 50%-Water Syringe) 12.5 gm PRN Q15MIN PRN 11/30/19 17:45 Fentanyl Citrate (Fentanyl 2ml Vial) 50 mcg PRN Q1HR PRN 11/29/19 01:00 11/30/19 00:59 DC Gabapentin (Neurontin) 300 mg TID 11/30/19 21:00 12/03/19 20:51 300 MG Info (Anti-Coagulation Monitoring By Pharmacy) 1 each PRN DAILY PRN 12/01/19 10:45 12/02/19 15:04 1 EACH Insulin Glargine (Lantus Syringe) 28 unit QHS 11/30/19 21:00 12/03/19 20:54 28 UNIT Insulin Human Lispro (HumaLOG) 4 units TIDWMEALS 11/30/19 18:15 12/03/19 18:02 4 UNITS Lactobacillus Rhamnosus (Culturelle) 1 cap BID 11/30/19 12:00 12/03/19 20:51 1 CAP Linezolid (Zyvox) 600 mg BID 12/03/19 11:00 12/03/19 20:51 600 MG Lisinopril (Prinivil) 10 mg DAILY 12/03/19 09:00 12/03/19 08:48 10 MG Lorazepam (Ativan Inj) 0.5 mg 1X ONCE 11/28/19 23:00 11/28/19 23:01 DC 11/28/19 22:32 0.5 MG Meropenem 500 mg/ Sodium Chloride 50 ml @ 100 mls/hr Q6HRS 12/01/19 08:30 12/04/19 05:20 100 MLS/HR Metronidazole 100 ml @ 100 mls/hr Q12HR 11/29/19 19:00 12/01/19 07:27 DC 11/30/19 21:24 100 MLS/HR Ondansetron HCl (Zofran) 4 mg PRN Q8HRS PRN 11/29/19 01:00 11/30/19 00:59 DC 11/30/19 00:02 4 MG Sodium Chloride 1,000 ml @ 75 mls/hr 1X ONCE 11/29/19 01:00 11/29/19 14:19 DC 11/29/19 00:28 75 MLS/HR Labs: Lab Laboratory Tests Test 12/03/19 07:20 12/03/19 11:46 12/03/19 11:47 12/03/19 16:40 Glucose (Fingerstick) 206 mg/dL (70-99) 334 mg/dL (70-99) 315 mg/dL (70-99) 162 mg/dL (70-99) Test 12/03/19 20:25 12/04/19 05:25 12/04/19 06:35 Glucose (Fingerstick) 111 mg/dL (70-99) Sodium Level 135 mmol/L (136-145) Potassium Level 4.7 mmol/L (3.5-5.1) Chloride Level 103 mmol/L (98-107) Carbon Dioxide Level 24 mmol/L (21-32) Anion Gap 8 (6-14) Blood Urea Nitrogen 36 mg/dL (8-26) Creatinine 1.9 mg/dL (0.7-1.3) Estimated GFR (Cockcroft-Gault) 36.7 Glucose Level 337 mg/dL (70-99) Calcium Level 8.1 mg/dL (8.5-10.1) White Blood Count 6.1 x10^3/uL (4.0-11.0) Red Blood Count 2.99 x10^6/uL (4.30-5.70) Hemoglobin 8.2 g/dL (13.0-17.5) Hematocrit 24.4 % (39.0-53.0) Mean Corpuscular Volume 81 fL (79-100) Mean Corpuscular Hemoglobin 27 pg (25-35) Mean Corpuscular Hemoglobin Concent 33 g/dL (31-37) Red Cell Distribution Width 17.5 % (11.5-14.5) Platelet Count 106 x10^3/uL (140-400) Neutrophils (%) (Auto) 72 % (31-73) Lymphocytes (%) (Auto) 19 % (24-48) Monocytes (%) (Auto) 6 % (0-9) Eosinophils (%) (Auto) 2 % (0-3) Basophils (%) (Auto) 1 % (0-3) Neutrophils # (Auto) 4.4 x10^3/uL (1.8-7.7) Lymphocytes # (Auto) 1.1 x10^3/uL (1.0-4.8) Monocytes # (Auto) 0.4 x10^3/uL (0.0-1.1) Eosinophils # (Auto) 0.1 x10^3/uL (0.0-0.7) Basophils # (Auto) 0.1 x10^3/uL (0.0-0.2) Micro RUN DATE: 12/01/19 [facility] LAB *LIVE* PAGE 1 RUN TIME: 1008 Specimen Inquiry PATIENT: KEITH NGUYEN ACCT: [id number] LOC: [address] [place] [address] U: [id number] AGE/SX: 59/M ROOM: [facility] RE11/29/[address]: WINTER TRISTAN MD : 1960 BED: 1 DIS: STATUS: ADM IN TLOC: SPEC #: [id number] ANALY: 11/28/19 STATUS: COMP REQ #: [id number] RECD: 11/28/[address]: GHAZALA ALLEN MD SOURCE: BLOOD ENTR: 11/29/19-[address]: UNKNOWN PCP NAME [facility]: ORDERED: BLD CULT - LC - Procedure Result BLOOD CULTURE LC Final Final FINAL ID= [SERRATIA MARCESCENS] SERRATIA MARCESCENS ANTIMICROBIAL SUSCEPTIBILITY Final Comment NEG FRANC 56 SERRATIA MARCESCENS ANTIBIOTIC RESULT INTERPRETATION AMPICILLIN/SULBACTAM 16/8 R* AMIKACIN <=16 S AMPICILLIN >16 R AMOXICILLIN/K CLAVULANATE >16/8 R AZTREONAM >16 R CEFTRIAXONE 8 R CEFTAZIDIME >16 R CEFOTAXIME >32 R CEFOXITIN 16 R* CIPROFLOXACIN <=0.25 S CEFEPIME 4 S CEFUROXIME >16 R CEFTAZIDIME/AVIBACTAM 8 S ERTAPENEM <=0.5 S GENTAMICIN <=2 S LEVOFLOXACIN <=0.5 S MEROPENEM <=1 S PIPERACILLIN/TAZOBACTAM >64 R TRIMETHOPRIM/SULFAMETHOXAZOLE <=0.5/9.5 S TETRACYCLINE 8 I TOBRAMYCIN <=2 S Unless otherwise specified, Testing Performed by: [address] [address] For Inquires, the Physician may contact the Microbiology department at [phone] Objective: Assessment: Serratia bacteremia present on admission source unclear what could be possible drug use Repeat blood cultures negative Culture 30 K staph aureus MRSA? Significance, blood cultures negative Fever improved Thrombocytopenia likely from sepsis History of Enterobacter, methicillin sensitive staph aureus sepsis November 03, source possible drug use Repeat blood cultures negative from November 07, 2019 GERI with CKD Amphetamine/methamphetamine use Diabetes mellitus poorly controlled Bilateral hydronephrosis Cirrhosis History of homelessness Chronic pain syndrome Protein calorie malnutrition Plan: Plan of Care DC meropenem, 1 dose of ertapenem today before discharge Patient has completed treatment for methicillin sensitive staph aureus and Enterobacter bacteremia from previous admission Linezolid for 7 days Start ciprofloxacin 500 mg p.o. twice daily for 10 days probiotics/yogurt avoid illicit drug use Discontinue central line before discharge Patient can be discharged home from ID standpoint DUNIA RODRÍGUEZ MD Dec 04, 2019 07:18
[2019-12-04] MEDS: INSULIN LISPRO 300 UNITS/3 ML VIAL. SQ SCH ×4 (08:00→12:00)
[2019-12-04] MEDS: GABAPENTIN 300 MG CAPSULE. PO SCH ×2 (08:26→13:56)
[2019-12-04] MEDS: LISINOPRIL 10 MG TABLET PO SCH (08:26)
[2019-12-04] MEDS: APIXABAN 5 MG TABLET. PO SCH (08:26)
[2019-12-04] MEDS: amLODIPine BESYLATE 10 MG TABLET PO SCH (08:26)
[2019-12-04] MEDS: LACTOBACILLUS RHAMNOSUS GG 1 CAPSULE. PO SCH (08:26)
[2019-12-04] MEDS: buPROPion XL 150 MG TAB.ER.24H. PO SCH (08:26)
[2019-12-04] MEDS: LINEZOLID 600 MG TABLET PO SCH (08:26)
[2019-12-04] MEDS ORDERED: INSULIN LISPRO 300 UNITS/3 ML VIAL. SQ ONE (09:00)
[2019-12-04] MEDS ORDERED: ERTAPENEM 1GM IVPB(GENERIC) NS 50 ML IV ONE (09:15)
[2019-12-04] MEDS: CLOTRIMAZOLE 1% TOPICAL CREAM 15GM TUBE. TP SCH (09:19)
[2019-12-04] MEDS ORDERED: APIX5TAB PO (10:18)
--- NOTE | 2019-12-04 10:18 | SNU/HH DC ---
DISCHARGE ORDERS DISCHARGE INFORMATION: CONDITION ON DISCHARGE: Stable CODE STATUS: Code Status: Full FPC: SNF STAY <30 DAYS: Yes HOSPICE: HOSPICE: No HOSPICE EVAL & TREAT: No LTAC: ADMIT TO LTAC: No POST DISCHARGE ORDERS: ACTIVITY ORDERS: Progressive ambulation DIET AFTER DISCHARGE: ADA WOUND/INCISION CARE: No wound care needed CHECKS AFTER DISCHARGE: CHECKS AFTER DISCHARGE: Check blood sugar, ac/hs FOLLOW-UP: LAB ORDERS FOR FOLLOW-UP: CBC, CMP TREATMENT/EQUIPMENT ORDERS: ADAPTIVE EQUIPMENT NEEDED: [facility] Physical Therapy For: Evalulation/Treatment Occupational Therapy For: Evaluation/Treatment DISCHARGE MEDICATIONS: Home Meds Active Scripts [ceFAZolin 2GM PREMIX] No Conflict Check, 2 GM IV Q8HRS for MSSA bacteremia for 30 Days, #90 Start on November 20 after Meropenem is completed on 11/20/19 Prov:RAPHAEL BROTHERS MD 11/14/19 Tamsulosin Hcl (FLOMAX) 0.4 Mg Cap.er.24h, 0.4 MG PO QHS for bph for 30 Days, # 30 CAP.SR Prov:RAPHAEL BROTHERS MD 11/14/19 Lidocaine (Lidocaine PATCH ) 1 Each Adh..patch, 1 PATCH TD PRN DAILY for chronic pain for 30 Days, #30 PATCH Prov:RAPHAEL BROTHERS MD 11/14/19 Insulin Lispro (Admelog) 100 Unit/1 Ml Vial, 4 UNITS SQ TIDWMEALS for dm for 30 Days, #90 EACH Prov:RAPHAEL BROTHERS MD 11/14/19 Insulin Glargine,Hum.rec.anlog (LANTUS) 100 Unit/1 Ml Vial, 28 UNIT SQ QHS for dm for 30 Days, #30 EACH Prov:RAPHAEL BRTOHERS MD 11/14/19 Bupropion Hcl (BUPROPION XL) 150 Mg Tab.er.24h, 300 MG PO DAILY for depression for 30 Days, #60 TAB.SR Prov:RAPHAEL BROTHERS MD 11/14/19 Gabapentin (GABAPENTIN) 300 Mg Capsule, 300 MG PO TID for chronic pain for 30 Days, #90 CAP Prov:RAPHAEL BROTHERS MD 11/14/19 Amlodipine Besylate (AMLODIPINE BESYLATE) 10 Mg Tablet, 10 MG PO DAILY for HTN for 30 Days, #30 TAB Prov:RAPHAEL BROTHERS MD 11/14/19 Meropenem (MEROPENEM) 1 Gm Vial, 1 GM IV Q12HR for enterobacter bactermia for 6 Days, #12 EACH Prov:RAPHAEL BROTHERS MD 11/14/19 Cyclobenzaprine Hcl (CYCLOBENZAPRINE HCL) 10 Mg Tablet, 10 MG PO TID PRN for MUSCLE SPASMS, #12 TAB Prov:TRINA PHILLIPS DO 01/01/16 Reported Medications Lisinopril (LISINOPRIL) 10 Mg Tablet, 10 MG PO DAILY for FOR HYPERTENSION, #30 TAB 0 Refills 08/22/13 Metformin Hcl (METFORMIN HCL) 500 Mg Tablet, 500 MG PO BIDWMEALS for ANTI- DIABETIC, TAB 0 Refills 08/22/13 IBAN HLAL III DO Dec 04, 2019 10:18
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
[2019-12-04 10:53] VITALS: BP 126/80
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
[2019-12-04] MEDS ORDERED: MIDAZOLAM HCL/PF 2 MG/2 ML VIAL. ONE (14:17)
[2019-12-04] MEDS ORDERED: MIDAZOLAM HCL/PF 2 MG/2 ML VIAL. IV ONE (14:30)
[2019-12-04 14:39] VITALS: BP 137/79
--- NOTE | 2019-12-04 14:49 | RAD ---
12/04/2019 12:45 PM Removal of right internal jugular tunneled central venous catheter Indication: No longer requires central venous access Discussion: The risks and benefits of the procedure were discussed the patient. Informed consent was obtained. A timeout procedure was performed. The right chest at the catheter exit site was prepped and draped using maximum sterile barrier technique. All elements of maximal sterile barrier technique including the use of a cap, mask, sterile gown, sterile gloves, large sterile sheet, appropriate hand hygiene, and 2% chlorhexidine for cutaneous antisepsis (or acceptable alternative antiseptic per current guidelines) were followed for this procedure. The catheter was removed with traction. A sterile dressing was applied. No immediate complications were identified. Impression: Removal of right internal jugular tunneled central venous catheter
--- NOTE | 2019-12-04 17:37 | NUR ---
Transportation on unit to take pt back to [facility]. Aide at bedside with patient, patient standing to use restroom and get dressed. Pt fell and landed on coccyx. No injuries noted. Physician on unit at time of fall. No new orders given. Pt okay to discharge to facility per physician.
--- NOTE | 2019-12-04 17:49 | NUR ---
Discharge Note: KEITH NGUYEN Attempted to contact [facility], unable to reach other facility for report. Attempted to contact this facility three seperate times. Pt left via wheelchair with transportation in stable condition.
== END 2019-12-04 18:01 | DRG 871 ==
LOC: ER 21:28 → 6 SOUTH 11-29 03:11 → ED HOLD 11-29 03:18 → OBSVTOIN 11-29 03:18 → 6 SOUTH 11-29 07:59 → 2 NORTH 12-02 18:07
PROVIDERS: ADMIT Family Medicine; ATTEND Family Medicine
PROC: 0JPV3XZ Removal of Tunneled Vascular Access Device from Upper Extremity Subcutaneous Tissue and Fascia, Percutaneous Approach (ICD-10-PCS; principal; 2019-12-04)
DX: A41.50 Gram-negative sepsis, unspecified (principal); E43 Unspecified severe protein-calorie malnutrition; N17.0 Acute kidney failure with tubular necrosis; E87.1 Hypo-osmolality and hyponatremia; I82.619 Acute embolism and thrombosis of superficial veins of unspecified upper extremity; N13.30 Unspecified hydronephrosis; B95.61 Methicillin susceptible Staphylococcus aureus infection as the cause of diseases classified elsewhere; D63.8 Anemia in other chronic diseases classified elsewhere; D69.59 Other secondary thrombocytopenia; E11.22 Type 2 diabetes mellitus with diabetic chronic kidney disease; E11.65 Type 2 diabetes mellitus with hyperglycemia; F12.90 Cannabis use, unspecified, uncomplicated; F15.90 Other stimulant use, unspecified, uncomplicated; F17.200 Nicotine dependence, unspecified, uncomplicated; F31.9 Bipolar disorder, unspecified; F43.10 Post-traumatic stress disorder, unspecified; G89.4 Chronic pain syndrome; I12.9 Hypertensive chronic kidney disease with stage 1 through stage 4 chronic kidney disease, or unspecified chronic kidney disease; Z96.649 Presence of unspecified artificial hip joint; K74.60 Unspecified cirrhosis of liver; K75.9 Inflammatory liver disease, unspecified; N18.9 Chronic kidney disease, unspecified; Z79.4 Long term (current) use of insulin; Z86.19 Personal history of other infectious and parasitic diseases; Z91.19 Patient's noncompliance with other medical treatment and regimen; Z20.828 Contact with and (suspected) exposure to other viral communicable diseases; Z68.23 Body mass index [BMI] 23.0-23.9, adult
CPT/HCPCS: 36415; 36589; 71045; 74176; 80048; 80053; 80307; 81001; 82962; 83605; 83735; 84100; 84484; 85007; 85025; 85379; 85610; 85730; 87040; 87077; 87086; 87186; 87205; J0692; J0744; J1335; J1815; J2060; J2185; J2250; J2405; J3490; J7030; U0003; 97110-GP; 97535-GO; G0378

== ENCOUNTER 2020-02-15 20:12 | Inpatient (IN) | payer MEDICARE, MEDICAID ==
[~2020-02-15] VITALS: Ht 182.9 cm; Wt 73.1 kg
[~2020-02-15 20:12] MED LIST changes: +APIX5TAB PO; +BUPR150T21 PO; -BUPR150T6 PO; +LISI10TA16 PO; -LISI10TA2 PO; +NAPR-699 PO; -NAPR250T6 PO
[2020-02-15] MEDS ORDERED: LABETALOL 20 MG/4 ML DISP.SYRIN. IVP ONE (20:30)
[2020-02-15] MEDS ORDERED: cefTRIAXone IV Push 1 GM VIAL. IVP ONE (20:30)
[2020-02-15] MEDS ORDERED: ONDANSETRON PF 4 MG/2 ML VIAL. IVP ONE (20:30)
[2020-02-15] MEDS ORDERED: IV NORMAL SALINE 1000ML BAG 1,000 ML IV ONE ×2 (20:45→22:00)
[2020-02-15 20:57] LABS: BASO % 0 % (0-3); EOS % 1 % (0-3); HEMATOCRIT 43.8 % (39.0-53.0); HEMOGLOBIN 14.7 g/dL (13.0-17.5); LYMPH % 29 % (24-48); MEAN CORPUSCULAR HEMOGLOBIN 27 pg (25-35); MEAN CORPUSCULAR HGB CONC 34 g/dL (31-37); MEAN CORPUSCULAR VOLUME 80 fL (79-100); MONO # 0.3 x10^3/uL (0.0-1.1); MONO % 5 % (0-9); NEUT # 4.5 x10^3/uL (1.8-7.7); NEUT % 65 % (31-73); RED BLOOD COUNT 5.47 x10^6/uL (4.30-5.70); RED CELL DISTRIBUTION WIDTH 14.9 % (11.5-14.5); WHITE BLOOD COUNT 6.9 x10^3/uL (4.0-11.0)
[2020-02-15 21:07] LABS: BILIRUBIN,URINE NEGATIVE (NEG); CLARITY,URINE CLEAR; COLOR,URINE YELLOW; NITRITE,URINE NEGATIVE (NEG); PH,URINE 5.5 (<5.0-8.0); PROTEIN,URINE 30 mg/dL (NEG-TRACE); UROBILINOGEN,URINE 0.2 mg/dL (0.2 mg/dL)
[2020-02-15 21:12] LABS: PLATELET COUNT 128 x10^3/uL (140-400)
[2020-02-15 21:15] LABS: ALBUMIN 3.9 g/dL (3.4-5.0); ALBUMIN/GLOBULIN RATIO 0.7 (1.0-1.7); C-REACTIVE PROTEIN 1.5 mg/L (0-3.3); CALCIUM 11.9 mg/dL (8.5-10.1); CREATININE 2.8 mg/dL (0.7-1.3); GFR 23.5; POTASSIUM 4.9 mmol/L (3.5-5.1); TOTAL BILIRUBIN 0.7 mg/dL (0.2-1.0); TOTAL PROTEIN 9.2 g/dL (6.4-8.2)
[2020-02-15 21:16] LABS: BACTERIA,URINE 0 /HPF (0-FEW); HYALINE CASTS, URINE FEW /HPF
--- NOTE | 2020-02-15 21:18 | RAD ---
XR CHEST 1V 02/15/2020 8:34 PM INDICATION: Weakness COMPARISON: None available TECHNIQUE: Portable frontal view of the chest is provided. FINDINGS: The cardiomediastinal silhouette is within normal limits. Lungs are clear. There are no significant pleural effusions. There is no pulmonary vascular congestion. No pneumothora x. Malleable plate and screw fixation of prior rib fractures appears similar to prior examination involv ing the left lateral seventh and ninth ribs. IMPRESSION: There is no acute cardiopulmonary process. Electronically signed by: Ramila Rivera MD (02/15/2020 9:10 PM) [facility]
[2020-02-15] MEDS ORDERED: INSULIN REGULAR 100 UNIT/ML 3ML VIAL. IV ONE (22:00)
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
[2020-02-15] MEDS: IV NORMAL SALINE 1000ML BAG 1,000 ML IV SCH (23:00)
[2020-02-15 23:15] VITALS: BP 173/116
[2020-02-15] MEDS ORDERED: DEXTROSE 50% 25 GM / 50ML DISP.SYRIN. IV PRN (23:45)
[2020-02-16] VITALS (7 sets, daily range): BP systolic 141–178; BP diastolic 90–110
[2020-02-16] MEDS ORDERED: fentaNYL PF VIAL 100 MCG/2 ML VIAL IVP PRN
[2020-02-16] MEDS ORDERED: HYDROcodone/APAP 5/325MG 1 TAB TABLET PO PRN
[2020-02-16] MEDS ORDERED: MORPHINE SULFATE 4 MG/ML VIAL. IV PRN
[2020-02-16] MEDS: IV NORMAL SALINE 1000ML BAG 1,000 ML IV SCH ×5 (00:10→19:45)
[2020-02-16] MEDS ORDERED: MAGNESIUM HYDROXIDE 2,400 MG/30 ML ORAL.SUSP. PO PRN (00:15)
[2020-02-16] MEDS ORDERED: PROCHLORPERAZINE 10 MG/2 ML VIAL. IVP PRN (00:15)
[2020-02-16] MEDS ORDERED: ACETAMINOPHEN 325 MG TABLET. PO PRN (00:15)
[2020-02-16] MEDS ORDERED: ONDANSETRON PF 4 MG/2 ML VIAL. IVP PRN (00:15)
[2020-02-16] MEDS ORDERED: BISACODYL 10 MG SUPP.RECT. PR PRN (00:15)
[2020-02-16] MEDS: INSULIN GLARGINE SYRINGE. SQ SCH ×2 (00:22→21:36)
[2020-02-16] MEDS ORDERED: INSULIN REGULAR 100 UNIT/ML 3ML VIAL. IV ONE (00:45)
[2020-02-16 00:59] LABS: BASO # 0.1 x10^3/uL (0.0-0.2); BASO % 1 % (0-3); EOS # 0.1 x10^3/uL (0.0-0.7); EOS % 1 % (0-3); HEMATOCRIT 37.3 % (39.0-53.0); HEMOGLOBIN 12.6 g/dL (13.0-17.5); LYMPH # 2.4 x10^3/uL (1.0-4.8); LYMPH % 33 % (24-48); MEAN CORPUSCULAR HEMOGLOBIN 27 pg (25-35); MEAN CORPUSCULAR HGB CONC 34 g/dL (31-37); MEAN CORPUSCULAR VOLUME 80 fL (79-100); MONO # 0.6 x10^3/uL (0.0-1.1); MONO % 8 % (0-9); NEUT # 4.2 x10^3/uL (1.8-7.7); NEUT % 57 % (31-73); PLATELET COUNT 68 x10^3/uL (140-400); RED BLOOD COUNT 4.67 x10^6/uL (4.30-5.70); RED CELL DISTRIBUTION WIDTH 14.9 % (11.5-14.5); WHITE BLOOD COUNT 7.2 x10^3/uL (4.0-11.0)
[2020-02-16 01:12] LABS: CALCIUM 10.4 mg/dL (8.5-10.1); CREATININE 2.5 mg/dL (0.7-1.3); GFR 26.8; POTASSIUM 4.3 mmol/L (3.5-5.1)
--- NOTE | 2020-02-16 03:49 | EKG ---
[facility] [address] [place] [address] Test Date: 2020-02-15 Test Time: 20:40:54 Pat Name: KEITH NGUYEN Department: Room: Gender: M [employer]: : 1960 Requested By: ANNIKA DE LA CRUZ Order Number: [id number] Reading MD: Measurements Intervals [place] Rate: 100 P: -14 IA: 170 QRS: 54 QRSD: 96 T: 175 QT: 346 QTc: 449 Interpretive Statements SINUS RHYTHM ATRIAL PREMATURE COMPLEX(ES) LEFT ATRIAL ABNORMALITY ST & T ABNORMALITY, CONSIDER ANTEROLATERAL ISCHEMIA OR LEFT VENTRICULAR STRAIN T ABNORMALITY IN INFEROLATERAL LEADS ABNORMAL ECG RI6.02 No previous ECG available for comparison
[2020-02-16] MEDS: MAG HYDROX/ALUMINUM HYD/SIMETH 30 ML ORAL.SUSP PO PRN (04:29)
[2020-02-16] MEDS ORDERED: diphenhydrAMINE HCL 25 MG CAPSULE PO ONE (05:00)
[2020-02-16] MEDS: INSULIN LISPRO 300 UNITS/3 ML VIAL. SQ SCH ×3 (08:29→17:00)
--- NOTE | 2020-02-16 11:20 | PDOC ---
[facility] PROGRESS NOTE Date of Service DOS: DATE: 02/16/20 TIME: 11:09 Chief Complaint Chief Complaint 1. HTN emergency 2. Hyperglycemia History of Present Illness History of Present Illness 02/16/2020 - Pt seen and examined - Mason RN - Chart reviewed Vitals/I&O Vitals/I&O: Vital Signs Date Time Temp Pulse Resp B/P (MAP) Pulse Ox O2 Delivery O2 Flow Rate FiO2 02/16/20 08:00 Room Air 02/16/20 07:00 97.5 70 19 175/110 (131) 99 97.5 I & O 0 02/15/20 02/15/20 02/16/20 15:00 23:00 07:00 Intake Total 1000 ml 1100 ml Output Total 550 ml Balance 1000 ml 550 ml Physical Exam General: Alert, No acute distress Lungs: Clear, Other Labs Labs: Laboratory Tests Test 02/15/20 20:35 02/15/20 20:51 02/15/20 20:56 02/15/20 23:07 Glucose (Fingerstick) 567 mg/dL (70-99) 581 mg/dL (70-99) White Blood Count 6.9 x10^3/uL (4.0-11.0) Red Blood Count 5.47 x10^6/uL (4.30-5.70) Hemoglobin 14.7 g/dL (13.0-17.5) Hematocrit 43.8 % (39.0-53.0) Mean Corpuscular Volume 80 fL (79-100) Mean Corpuscular Hemoglobin 27 pg (25-35) Mean Corpuscular Hemoglobin Concent 34 g/dL (31-37) Red Cell Distribution Width 14.9 % (11.5-14.5) Platelet Count 128 x10^3/uL (140-400) Neutrophils (%) (Auto) 65 % (31-73) Lymphocytes (%) (Auto) 29 % (24-48) Monocytes (%) (Auto) 5 % (0-9) Eosinophils (%) (Auto) 1 % (0-3) Basophils (%) (Auto) 0 % (0-3) Neutrophils # (Auto) 4.5 x10^3/uL (1.8-7.7) Lymphocytes # (Auto) 2.0 x10^3/uL (1.0-4.8) Monocytes # (Auto) 0.3 x10^3/uL (0.0-1.1) Eosinophils # (Auto) 0.0 x10^3/uL (0.0-0.7) Basophils # (Auto) 0.0 x10^3/uL (0.0-0.2) Sodium Level 126 mmol/L (136-145) Potassium Level 4.9 mmol/L (3.5-5.1) Chloride Level 88 mmol/L (98-107) Carbon Dioxide Level 29 mmol/L (21-32) Anion Gap 9 (6-14) Blood Urea Nitrogen 54 mg/dL (8-26) Creatinine 2.8 mg/dL (0.7-1.3) Estimated GFR (Cockcroft-Gault) 23.5 BUN/Creatinine Ratio 19 (6-20) Glucose Level 682 mg/dL (70-99) Lactic Acid Level 4.4 mmol/L (0.4-2.0) Calcium Level 11.9 mg/dL (8.5-10.1) Total Bilirubin 0.7 mg/dL (0.2-1.0) Aspartate Amino Transf (AST/SGOT) 31 U/L (15-37) Alanine Aminotransferase (ALT/SGPT) 54 U/L (16-63) Alkaline Phosphatase 115 U/L (46-116) Lactate Dehydrogenase 148 U/L (85-227) Troponin I Quantitative < 0.017 ng/mL (0.000-0.055) C-Reactive Protein, Quantitative 1.5 mg/L (0-3.3) RG-Kia-V-Type Natriuretic Peptide 3122 pg/mL (0-124) Total Protein 9.2 g/dL (6.4-8.2) Albumin 3.9 g/dL (3.4-5.0) Albumin/Globulin Ratio 0.7 (1.0-1.7) Urine Collection Type Unknown Urine Color Yellow Urine Clarity Clear Urine pH 5.5 (<5.0-8.0) Urine Specific Crump 1.020 (1.000-1.030) Urine Protein 30 mg/dL (NEG-TRACE) Urine Glucose (UA) >=1000 mg/dL (NEG) Urine Ketones (Stick) Negative mg/dL (NEG) Urine Blood Moderate (NEG) Urine Nitrite Negative (NEG) Urine Bilirubin Negative (NEG) Urine Urobilinogen Dipstick 0.2 mg/dL (0.2 mg/dL) Urine Leukocyte Esterase Negative (NEG) Urine RBC 1-2 /HPF (0-2) Urine WBC 5-10 /HPF (0-4) Urine Squamous Epithelial Cells Few /LPF Urine Bacteria 0 /HPF (0-FEW) Urine Hyaline Casts Few /HPF Urine Mucus Slight /LPF Test 02/16/20 00:02 02/16/20 00:45 02/16/20 04:09 02/16/20 07:23 Glucose (Fingerstick) 513 mg/dL (70-99) 388 mg/dL (70-99) 415 mg/dL (70-99) White Blood Count 7.2 x10^3/uL (4.0-11.0) Red Blood Count 4.67 x10^6/uL (4.30-5.70) Hemoglobin 12.6 g/dL (13.0-17.5) Hematocrit 37.3 % (39.0-53.0) Mean Corpuscular Volume 80 fL (79-100) Mean Corpuscular Hemoglobin 27 pg (25-35) Mean Corpuscular Hemoglobin Concent 34 g/dL (31-37) Red Cell Distribution Width 14.9 % (11.5-14.5) Platelet Count 68 x10^3/uL (140-400) Neutrophils (%) (Auto) 57 % (31-73) Lymphocytes (%) (Auto) 33 % (24-48) Monocytes (%) (Auto) 8 % (0-9) Eosinophils (%) (Auto) 1 % (0-3) Basophils (%) (Auto) 1 % (0-3) Neutrophils # (Auto) 4.2 x10^3/uL (1.8-7.7) Lymphocytes # (Auto) 2.4 x10^3/uL (1.0-4.8) Monocytes # (Auto) 0.6 x10^3/uL (0.0-1.1) Eosinophils # (Auto) 0.1 x10^3/uL (0.0-0.7) Basophils # (Auto) 0.1 x10^3/uL (0.0-0.2) Sodium Level 132 mmol/L (136-145) Potassium Level 4.3 mmol/L (3.5-5.1) Chloride Level 97 mmol/L (98-107) Carbon Dioxide Level 27 mmol/L (21-32) Anion Gap 8 (6-14) Blood Urea Nitrogen 50 mg/dL (8-26) Creatinine 2.5 mg/dL (0.7-1.3) Estimated GFR (Cockcroft-Gault) 26.8 Glucose Level 479 mg/dL (70-99) Lactic Acid Level 3.9 mmol/L (0.4-2.0) Calcium Level 10.4 mg/dL (8.5-10.1) Procalcitonin < 0.10 ng/mL (0.00-0.10) Test 02/16/20 09:20 02/16/20 10:46 Glucose (Fingerstick) 394 mg/dL (70-99) 242 mg/dL (70-99) Review of Systems Review of Systems: Pt in no acute distress. Pt is alert and oriented. No rashes. Assessment and Plan Assessmemt and Plan Problems Medical Problems: (1) Acute kidney failure Status: Acute (2) Hyperglycemia Status: Acute (3) Hypertensive urgency Status: Acute (4) Methamphetamine abuse Status: Acute (5) Noncompliance Status: Acute Assessment: 1. HTN emergency 2. Hyperglycemia Plan: 1. Probable discharge later today once glucose is under 200 Comment Review of Relevant I have reviewed the following items alfonso (where applicable) has been applied. Medications: Current Medications Medications (Trade) Dose Ordered Sig/Nany Route PRN Reason Start Time Stop Time Status Last Admin Dose Admin Labetalol HCl (Normodyne Iv Push) 20 mg 1X ONCE IVP 02/15/20 20:30 02/15/20 20:37 DC 02/15/20 20:57 Ondansetron HCl (Zofran) 4 mg 1X ONCE IVP 02/15/20 20:30 02/15/20 20:37 DC 02/15/20 20:57 Sodium Chloride 1,000 ml @ 1,000 mls/hr 1X ONCE IV 02/15/20 20:45 02/15/20 21:44 DC 02/15/20 20:49 Sodium Chloride 1,000 ml @ 1,000 mls/hr 1X ONCE IV 02/15/20 22:00 02/15/20 22:59 DC 02/15/20 22:01 Insulin Human Regular (HumuLIN R VIAL) 10 unit 1X ONCE IV 02/15/20 22:00 02/15/20 22:01 DC 02/15/20 22:00 Insulin Glargine (Lantus Syringe) 13 unit QHS SQ 02/16/20 00:00 02/16/20 00:22 Insulin Human Lispro (HumaLOG) 0-9 UNITS TIDWMEALS SQ 02/16/20 08:00 02/16/20 08:29 Sodium Chloride 1,000 ml @ 100 mls/hr Q10H IV 02/15/20 23:45 02/16/20 08:31 Morphine Sulfate (Morphine Sulfate) 4 mg PRN Q2HR PRN IV PAIN 02/16/20 00:00 02/16/20 00:16 Acetaminophen/ Hydrocodone Bitart (Lortab 5/325) 1 tab PRN Q4HRS PRN PO PAIN 02/16/20 00:00 02/16/20 02:48 Al Hydroxide/Mg Hydroxide (Mylanta Plus Xs) 30 ml PRN Q3HRS PRN PO HEARTBURN / GAS 02/16/20 00:15 02/16/20 04:29 Insulin Human Regular (HumuLIN R VIAL) 10 unit 1X ONCE IV 02/16/20 00:45 02/16/20 00:46 DC 02/16/20 00:52 Diphenhydramine HCl (Benadryl) 25 mg 1X ONCE PO 02/16/20 05:00 02/16/20 05:05 DC 02/16/20 05:09 Justifications for Admission Other Justification GERI, HTN Urgency, Hyperglycemia IBAN HALL III DO Feb 16, 2020 11:20
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
[2020-02-16] MEDS ORDERED: INSULIN LISPRO 300 UNITS/3 ML VIAL. SQ ONE ×2 (21:30→23:15)
[2020-02-17] MEDS ORDERED: INSULIN LISPRO 300 UNITS/3 ML VIAL. SQ ONE ×2 (00:15→20:00)
[2020-02-17 03:22] VITALS: BP 137/85
[2020-02-17] MEDS: IV NORMAL SALINE 1000ML BAG 1,000 ML IV SCH ×2 (05:45→15:45)
[2020-02-17 07:00] VITALS: BP 158/105
[2020-02-17] MEDS: INSULIN LISPRO 300 UNITS/3 ML VIAL. SQ SCH ×3 (09:02→18:19)
[2020-02-17 11:00] VITALS: BP 165/110
[2020-02-17] MEDS: MAG HYDROX/ALUMINUM HYD/SIMETH 30 ML ORAL.SUSP PO PRN ×2 (13:58→20:44)
--- NOTE | 2020-02-17 14:52 | PDOC ---
[facility] PROGRESS NOTE Date of Service DOS: DATE: 02/17/20 TIME: 14:51 Chief Complaint Chief Complaint HTN emergency HHS hyperglycemia, uncontrolled GERI due to vasomotor nephropathy History of Present Illness History of Present Illness 02/17/2020 No acute events overnight. Patient's sugars are now 189. Blood pressure in the 150s to 160s systolics. Anticipate discharge within the next 24 hours to [facility]. 02/16/2020 - Pt seen and examined - Dw RN - Chart reviewed Vitals/I&O Vitals/I&O: Vital Signs Date Time Temp Pulse Resp B/P (MAP) Pulse Ox O2 Delivery O2 Flow Rate FiO2 02/17/20 11:00 98.3 87 20 165/110 (128) 99 Room Air 98.3 I & O 02/16/20 02/16/20 02/17/20 15:00 23:00 07:00 Intake Total 400 ml 540 ml 150 ml Output Total 300 ml 1200 ml 1000 ml Balance 100 ml -660 ml -850 ml Physical Exam General: Alert, No acute distress Lungs: Clear, Other Labs Labs: Laboratory Tests Test 02/16/20 16:41 02/16/20 21:18 02/16/20 22:53 02/17/20 00:05 Glucose (Fingerstick) 144 mg/dL (70-99) 379 mg/dL (70-99) 408 mg/dL (70-99) 342 mg/dL (70-99) Test 02/17/20 01:15 02/17/20 07:32 02/17/20 11:10 Glucose (Fingerstick) 216 mg/dL (70-99) 189 mg/dL (70-99) 292 mg/dL (70-99) Assessment and Plan Assessmemt and Plan Problems Medical Problems: (1) Acute kidney failure Status: Acute (2) Hyperglycemia Status: Acute (3) Hypertensive urgency Status: Acute (4) Methamphetamine abuse Status: Acute (5) Noncompliance Status: Acute Comment Review of Relevant I have reviewed the following items alfonso (where applicable) has been applied. Medications: Current Medications Medications (Trade) Dose Ordered Sig/Nany Route PRN Reason Start Time Stop Time Status Last Admin Dose Admin Insulin Human Lispro (HumaLOG) 8 units 1X ONCE SQ 02/16/20 21:30 02/16/20 21:43 DC 02/16/20 21:46 Insulin Human Lispro (HumaLOG) 12 units 1X ONCE SQ 02/16/20 23:15 02/16/20 23:16 DC 02/16/20 23:09 Insulin Human Lispro (HumaLOG) 6 units 1X ONCE SQ 02/17/20 00:15 02/17/20 00:16 DC 02/17/20 00:21 Justifications for Admission Other Justification GERI, HTN Urgency, Hyperglycemia RAPHAEL BROTHERS MD Feb 17, 2020 14:52
[2020-02-17 15:00] VITALS: BP 162/108
[2020-02-17 19:00] VITALS: BP 160/90
[2020-02-17] MEDS: INSULIN GLARGINE SYRINGE. SQ SCH (20:44)
[2020-02-17] MEDS: CALCIUM CARBONATE 500 MG TAB.CHEW PO PRN (20:44)
[2020-02-17 23:00] VITALS: BP 149/76
[2020-02-18] MEDS: IV NORMAL SALINE 1000ML BAG 1,000 ML IV SCH ×2 (01:45→11:45)
[2020-02-18 03:00] VITALS: BP 164/96
[2020-02-18] MEDS: MAG HYDROX/ALUMINUM HYD/SIMETH 30 ML ORAL.SUSP PO PRN ×2 (03:02→08:13)
[2020-02-18] MEDS: CALCIUM CARBONATE 500 MG TAB.CHEW PO PRN ×2 (03:02→08:13)
[2020-02-18 07:00] VITALS: BP 183/118
[2020-02-18] MEDS ORDERED: LABETALOL 20 MG/4 ML DISP.SYRIN. IVP ONE (08:00)
[2020-02-18] MEDS: INSULIN LISPRO 300 UNITS/3 ML VIAL. SQ SCH ×5 (08:19→17:20)
[2020-02-18] MEDS ORDERED: LISINOPRIL 20 MG TABLET PO SCH (10:30)
[2020-02-18 11:00] VITALS: BP 163/99
--- NOTE | 2020-02-18 12:01 | PDOC3 ---
[facility]-Discharge Summary Date of Admission: Date of Admission: Feb 16, 2020 Discharge Diagnosis: Discharge Diagnosis: HTN emergency, now medically stable HHS hyperglycemia, uncontrolled GERI due to vasomotor nephropathy Hospital Course: Hospital Course: 59-year-old male who presents to the emergency room complaining of generalized weakness and fatigue. He states he thought maybe his blood sugar was low because he did not have any energy. He did use methamphetamines yesterday. He was discharged 3 months ago after being admitted for septic shock. He has not taken any of his medications since that time. He denies any URI symptoms, sore throat, cough, body aches, fevers, chills, sweats, abdominal pain, nausea, vomiting, urinary symptoms. Patient admitted for observation and control his blood pressure and glucose levels. P.o. blood pressure medications were started and insulin long-acting and short-acting was started on return and we were able to bring down his blood sugars less than 200. Rest of his hospital course was uneventful and he remained asymptomatic. Disposition: Disposition/Orders: D/C to Another Facility Activity: Activity: Resume previous activity Diet: Diet: Consistent Carbohydrate Medications: Home Meds Active Scripts Apixaban (ELIQUIS) 5 Mg Tablet, 5 MG PO BID for . for 90 Days, #180 TAB Prov:IBAN HALL III DO 12/04/19 Tamsulosin Hcl (FLOMAX) 0.4 Mg Cap.er.24h, 0.4 MG PO QHS for bph for 30 Days, #30 CAP.SR Prov:RAPHAEL BROTHERS MD 11/14/19 Lidocaine (Lidocaine PATCH ) 1 Each Adh..patch, 1 PATCH TD PRN DAILY for chronic pain for 30 Days, #30 PATCH Prov:RAPHAEL BROTHERS MD 11/14/19 Insulin Lispro (Admelog) 100 Unit/1 Ml Vial, 4 UNITS SQ TIDWMEALS for dm for 30 Days, #90 EACH Prov:RAPHAEL BROTHERS MD 11/14/19 Insulin Glargine,Hum.rec.anlog (LANTUS) 100 Unit/1 Ml Vial, 28 UNIT SQ QHS for dm for 30 Days, #30 EACH Prov:RAPHAEL BROTHERS MD 11/14/19 Bupropion Hcl (BUPROPION XL) 150 Mg Tab.er.24h, 300 MG PO DAILY for depression for 30 Days, #60 TAB.SR Prov:RAPHAEL BROTHERS MD 11/14/19 Gabapentin (GABAPENTIN) 300 Mg Capsule, 300 MG PO TID for chronic pain for 30 Days, #90 CAP Prov:RAPHAEL BROTHERS MD 11/14/19 Amlodipine Besylate (AMLODIPINE BESYLATE) 10 Mg Tablet, 10 MG PO DAILY for HTN for 30 Days, #30 TAB Prov:RAPHAEL BROTHERS MD 11/14/19 Cyclobenzaprine Hcl (CYCLOBENZAPRINE HCL) 10 Mg Tablet, 10 MG PO TID PRN for MUSCLE SPASMS, #12 TAB Prov:JACQUELINETRINA DO 01/01/16 Reported Medications Lisinopril (LISINOPRIL) 10 Mg Tablet, 10 MG PO DAILY for FOR HYPERTENSION, #30 TAB 0 Refills 08/22/13 Metformin Hcl (METFORMIN HCL) 500 Mg Tablet, 500 MG PO BIDWMEALS for ANTI- DIABETIC, TAB 0 Refills 08/22/13 Discontinued Scripts [ceFAZolin 2GM PREMIX] No Conflict Check, 2 GM IV Q8HRS for MSSA bacteremia for 30 Days, #90 Start on November 20 after Meropenem is completed on 11/20/19 Prov:RAPHAEL BROTHERS MD 11/14/19 Meropenem (MEROPENEM) 1 Gm Vial, 1 GM IV Q12HR for enterobacter bactermia for 6 Days, #12 EACH Prov:RAPHAEL BROTHERS MD 11/14/19 Scheduled Amlodipine Besylate (Amlodipine Besylate), 10 MG PO DAILY Apixaban (Eliquis), 5 MG PO BID Bupropion Hcl (Bupropion Xl), 300 MG PO DAILY Gabapentin (Gabapentin), 300 MG PO TID Insulin Glargine,Hum.rec.anlog (Lantus), 28 UNIT SQ QHS Insulin Lispro (Admelog), 4 UNITS SQ TIDWMEALS Lidocaine (Lidocaine PATCH ), 1 PATCH TD PRN DAILY Lisinopril (Lisinopril), 10 MG PO DAILY, (Reported) Metformin Hcl (Metformin Hcl), 500 MG PO BIDWMEALS, (Reported) Tamsulosin Hcl (Flomax), 0.4 MG PO QHS Scheduled PRN Cyclobenzaprine Hcl (Cyclobenzaprine Hcl), 10 MG PO TID PRN for MUSCLE SPASMS Discontinued Medications Meropenem (Meropenem), 1 GM IV Q12HR Discontinued Reason: not taking [Cefazolin], 2 GM IV Q8HRS Discontinued Reason: not on Total Time: Total Time: total time spent was 50 minutes in preparing scripts, discharge planning with SWI and RN and preparing this discharge summary Patient seen and examined on day of discharge. No acute abnormal findings And medically stable Justicifation of Admission Dx: Justifications for Admission: Justification of Admission Dx: Yes RAPHAEL BROTHERS MD Feb 18, 2020 12:01
[2020-02-18 15:00] VITALS: BP 150/94
[2020-02-18] MEDS ORDERED: INSULIN GLARGINE SYRINGE. SQ SCH (21:00)
[2020-02-18] MEDS ORDERED: FAMOTIDINE 20 MG TABLET. PO SCH (21:00)
== END 2020-02-18 17:30 | DRG 304 ==
LOC: ER 20:12 → 2 NORTH 22:44 → 4 NORTH 02-16 19:43
PROVIDERS: ADMIT Family Medicine; ATTEND Family Medicine
DX: I16.1 Hypertensive emergency (principal); N17.0 Acute kidney failure with tubular necrosis; F31.9 Bipolar disorder, unspecified; I10 Essential (primary) hypertension; F43.10 Post-traumatic stress disorder, unspecified; F17.210 Nicotine dependence, cigarettes, uncomplicated; F12.90 Cannabis use, unspecified, uncomplicated; E11.65 Type 2 diabetes mellitus with hyperglycemia; E86.0 Dehydration; F15.10 Other stimulant abuse, uncomplicated; Z20.822 Contact with and (suspected) exposure to COVID-19; Z96.649 Presence of unspecified artificial hip joint; Z91.19 Patient's noncompliance with other medical treatment and regimen; Z59.0 Homelessness; Z83.3 Family history of diabetes mellitus
CPT/HCPCS: 36415; 71045; 80048; 80053; 81001; 82962; 83605; 83615; 83880; 84145; 84484; 85025; 86140; 87426; 93005; 96361; 96374; 96375; 99285; J1815; J2270; J2405; J3490; J7030; U0003; G0378; Q0163